=== PATIENT | female | born 1995 | race Caucasian/White ===

== ENCOUNTER 2016-08-27 15:47 | Emergency (ER) | payer MEDICAID, OTHER ==
--- NOTE | 2016-08-27 17:16 | EDDOCDS ---
Physician Documentation [facility] Name: Maya Heller Age: 21 yrs Sex: Female : 1995 Arrival Date: 08/27/2016 Time: 15:47 Bed TR7 Private MD: Regla Rodriguez A Disposition: 08/27/16 16:53 Discharged to Home/Self Care. Impression: Acute sinusitis, unspecified, Cough. - Condition is Stable. - Discharge Instructions: Sinusitis, Adult, Cough, Adult. - Prescriptions for Zithromax Z- Gianluca 250 mg Oral Tablet - take 1 tablet by ORAL route as directed for 5 days Day 1- take two tablets once. Day 2, 3, 4 , 5 take one tablet once daily.; 6 tablet. benzonatate 200 mg Oral Capsule - take 1 capsule by ORAL route 3 times per day As needed do not chew; 30 capsule. Fluticasone 50 mcg/actuation Nasal [place], Suspension - inhale 2 spray by INTRANASAL route once daily; 1 bottle. - Medication Reconciliation, Local Pharmacy Hours form. - Follow up: Emergency Department; When: As needed; Reason: Worsening of conditions. Follow up: Private Physician; When: 4 - 5 days; Reason: Wound/Symptom Recheck, Recheck today's complaints, Continuance of care. - Problem is new. - Symptoms are unchanged. Historical: - Allergies: SULFA (SULFONAMIDES); - Home Meds: 1. Singulair 10 mg Oral tab 1 tab once daily 2. Advair Diskus 250-50 mcg/dose Inhl dsdv 1 puff 2 times per day 3. Clarinex 5 mg Oral tab 1 tab once daily - PMHx: Asthma; - PSHx: Tonsillectomy; - Social history: Smoking status: Patient states was never smoker of tobacco. No barriers to communication noted, The patient speaks fluent Kiswahili, Speaks appropriately for age. - Family history: Not pertinent. - : The pt / caregiver states he / she is not on anticoagulants. Home medication list is obtained from the patient. - Exposure Risk Screening:: None identified. 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 3 in. (160.02 cm); Pain 4/10; 15:49 Body Mass Index 32.77 (83.91 kg, 160.02 cm) elp MDM: 16:41 Financial registration complete. ada 16:43 [facility] Payment Agreement was scanned into [employer] and attached to record. ada Signatures: Chano Cotter RN RN mlb1 Belgica AndradeRN RN [facility] Arabella La PA-C PA-C dt4 Yudi Cesar The chart was reviewed and I authenticate all verbal orders and agree with the evaluation and treatment provided.Attachments: 16:43 [facility] Payment Agreement gjalexi MTDD
--- NOTE | 2016-08-27 17:16 | EDDOCDS ---
Nurse's Notes [facility] Name: Maya Heller Age: 21 yrs Sex: Female : 1995 Arrival Date: 08/27/2016 Time: 15:47 Bed TR7 Private MD: Regla Rodriguez A Diagnosis: Acute sinusitis, unspecified;Cough Presentation: 08/27 15:51 Presenting complaint: Patient states: "I'm super congested, I have an upset stomach, mlb1 I've been super tired and achy". symptoms began Fridays. Risk factors: the patient reports no vaginal bleeding. Adult Sepsis Screening: The patient does not have new or worsening altered mentation. Patient's respiratory rate is less than 22. Systolic blood pressure is greater than 100. Patient has a qSOFA score of 0- Negative Sepsis Screen. Suicide/Homicide risk assessment- the patient denies having any suicidal and/or homicidal ideations and does not present with any other emotional, behavioral or mental health complaints. Status: Patient is not a service worker helper or dependent. Transition of care: patient was not received from another setting of care. 15:51 Acuity: ARIADNE Level 4 mlb1 15:51 Method Of Arrival: Walkin/Carried/Asstd mlb1 Triage Assessment: 15:54 General: Appears in no apparent distress, Behavior is appropriate for age, cooperative. mlb1 General: Reports fatigue for >3 days. Pain: Location: "all over" Pain currently is 4 out of 10 on a pain scale. Pt Declines HIV testing. GI: Reports diarrhea, nausea. 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 Singulair 10 mg Oral tab 1 tab once daily 2. Advair Diskus 250-50 mcg/dose Inhl dsdv 1 puff 2 times per day 3. Clarinex 5 mg Oral tab 1 tab once daily - PMHx: Asthma; - PSHx: Tonsillectomy; - Social history: Smoking status: Patient states was never smoker of tobacco. No barriers to communication noted, The patient speaks fluent Amharic, Speaks appropriately for age. - Family history: Not pertinent. - : The pt / caregiver states he / she is not on anticoagulants. Home medication list is obtained from the patient. - Exposure Risk Screening:: None identified. Screenin:01 Screening information is obtained from the patient. Fall risk: No risks identified. [facility] Assistance ADL's: requires no assistance with activities of daily living. Abuse/DV Screen: The patient / caregiver reports he/she is: not in a situation that causes fear, pain or injury. Nutritional screening: No deficits noted. Advance Directives: There is no active DNR order. home support is adequate. Assessment: 17:01 General: Appears in no apparent distress, comfortable, Behavior is appropriate for age, cjh cooperative. Pain: Denies pain. Respiratory: Airway is patent Respiratory effort is even, unlabored, Respiratory pattern is regular, symmetrical. GI: Abdomen is non- distended assessed by PA assessed by PA. Derm: Skin is pink, warm & dry. Vital Signs: 15:49 BP 134 / 75; Pulse 89; Resp 18; Temp 97.8; Pulse Ox 100% ; Weight 83.91 kg; Height 5 elp ft. 3 in. (160.02 cm); Pain 4/10; 15:49 Body Mass Index 32.77 (83.91 kg, 160.02 cm) elp Vitals: 15:49 Log In Time: August 27, 2016 at 15:47. elp ED Course: 15:48 Patient visited by Lalita Powell PCA. elp 15:48 Patient moved to Waiting elp 15:49 Regla Rodriguez is Private Physician. elp 15:50 Patient visited by Lalita Powell PCA. elp 15:50 Patient moved to Pre RCE elp 15:51 Patient visited by Chano Cotter RN. mlb1 15:53 Triage Initiated mlb1 15:55 Patient visited by Chano Cotter RN. mlb1 16:19 Patient moved to Triage 2 rs6 16:30 [facility] La [facility]. dt4 16:30 Kenny Bess MD is Attending Physician. dt4 16:31 Patient visited by Arabella La PA-C. dt4 16:43 [facility] Payment Agreement was scanned into [employer] and attached to record. gjb 16:58 Patient moved to TR7 ck1 17:01 The patient / caregiver is instructed regarding the plan of care and ED course. [facility] 17:01 No IV's were initiated during this patient's visit. No procedures done that require [facility] assistance. Order Results: There are currently no results for this order. Outcome: 16:53 Discharge ordered by Provider. dt4 17:01 Discharge Assessment: Patient awake, alert and oriented x 3. No cognitive and/or [facility] functional deficits noted. Patient verbalized understanding of disposition instructions. patient administered narcotics - no. The following High Risk Discharge criteria are identified: None. Discharged to home ambulatory. Condition: good Condition: stable Condition: improved. Discharge instructions given to patient, Instructed on discharge instructions, follow up and referral plans. medication usage, Demonstrated understanding of instructions, medications, Pt was receptive of discharge instructions/ teaching. Prescriptions given X 3. No special radiology studies were completed. Property :Personal belongings accompany Pt. 17:15 Patient left the ED. mlb1 Signatures: Chano Cotter RN RN mlb1 Emma RodasRN RN ck1 Belgica AndradeRN RN cj Lalita Powell, SQUARING SHEAR OPERATOR SQUARING SHEAR OPERATOR ivanap Arabella La PA-C PA-C dt4 Shayna Hilliard, SQUARING SHEAR OPERATOR SQUARING SHEAR OPERATOR rs6 Yudi Cesar MTDD
--- NOTE | 2016-08-29 18:16 | EDDOCDS ---
Physician Documentation [facility] Name: Maya Heller Age: 21 yrs Sex: Female : 1995 Arrival Date: 08/27/2016 Time: 15:47 Bed TR7 Private MD: Regla Rodriguez A Disposition: 08/27/16 16:53 Discharged to Home/Self Care. Impression: Acute sinusitis, unspecified, Cough. - Condition is Stable. - Discharge Instructions: Sinusitis, Adult, Cough, Adult. - Prescriptions for Zithromax Z- Gianluca 250 mg Oral Tablet - take 1 tablet by ORAL route as directed for 5 days Day 1- take two tablets once. Day 2, 3, 4 , 5 take one tablet once daily.; 6 tablet. benzonatate 200 mg Oral Capsule - take 1 capsule by ORAL route 3 times per day As needed do not chew; 30 capsule. Fluticasone 50 mcg/actuation Nasal [place], Suspension - inhale 2 spray by INTRANASAL route once daily; 1 bottle. - Medication Reconciliation, Local Pharmacy Hours form. - Follow up: Emergency Department; When: As needed; Reason: Worsening of conditions. Follow up: Private Physician; When: 4 - 5 days; Reason: Wound/Symptom Recheck, Recheck today's complaints, Continuance of care. - Problem is new. - Symptoms are unchanged. Historical: - Allergies: SULFA (SULFONAMIDES); - Home Meds: 1. Singulair 10 mg Oral tab 1 tab once daily 2. Advair Diskus 250-50 mcg/dose Inhl dsdv 1 puff 2 times per day 3. Clarinex 5 mg Oral tab 1 tab once daily - PMHx: Asthma; - PSHx: Tonsillectomy; - Social history: Smoking status: Patient states was never smoker of tobacco. No barriers to communication noted, The patient speaks fluent Welsh, Speaks appropriately for age. - Family history: Not pertinent. - : The pt / caregiver states he / she is not on anticoagulants. Home medication list is obtained from the patient. - Exposure Risk Screening:: None identified. 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 3 in. (160.02 cm); Pain 4/10; 15:49 Body Mass Index 32.77 (83.91 kg, 160.02 cm) elp MDM: 16:41 Financial registration complete. gjb 16:43 [facility] Payment Agreement was scanned into [employer] and attached to record. gjb 08/28 09:43 T-Sheet-- Draft Copy was scanned into [employer] and attached to record. gb Signatures: Che Osullivan, Reg Reg gb Vahe, Chano Brunson RN RN mlb1 Belgica AndradeRN RN cj Arabella La PA-C PA-C dt4 Yudi Cesar The chart was reviewed and I authenticate all verbal orders and agree with the evaluation and treatment provided.Attachments: 08/27 16:43 [facility] Payment Agreement gjb 08/28 09:43 T-Sheet-- Draft Copy gb Chart Complete MTDD
--- NOTE | 2016-08-29 18:16 | EDDOCDS ---
Nurse's Notes [facility] Name: Maya Heller Age: 21 yrs Sex: Female : 1995 Arrival Date: 08/27/2016 Time: 15:47 Bed TR7 Private MD: Regla Rodriguez A Diagnosis: Acute sinusitis, unspecified;Cough Presentation: 08/27 15:51 Presenting complaint: Patient states: "I'm super congested, I have an upset stomach, mlb1 I've been super tired and achy". symptoms began Fridays. Risk factors: the patient reports no vaginal bleeding. Adult Sepsis Screening: The patient does not have new or worsening altered mentation. Patient's respiratory rate is less than 22. Systolic blood pressure is greater than 100. Patient has a qSOFA score of 0- Negative Sepsis Screen. Suicide/Homicide risk assessment- the patient denies having any suicidal and/or homicidal ideations and does not present with any other emotional, behavioral or mental health complaints. Status: Patient is not a director of cardiopulmonary services or dependent. Transition of care: patient was not received from another setting of care. 15:51 Acuity: ARIADNE Level 4 mlb1 15:51 Method Of Arrival: Walkin/Carried/Asstd mlb1 Triage Assessment: 15:54 General: Appears in no apparent distress, Behavior is appropriate for age, cooperative. mlb1 General: Reports fatigue for >3 days. Pain: Location: "all over" Pain currently is 4 out of 10 on a pain scale. Pt Declines HIV testing. GI: Reports diarrhea, nausea. 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 Singulair 10 mg Oral tab 1 tab once daily 2. Advair Diskus 250-50 mcg/dose Inhl dsdv 1 puff 2 times per day 3. Clarinex 5 mg Oral tab 1 tab once daily - PMHx: Asthma; - PSHx: Tonsillectomy; - Social history: Smoking status: Patient states was never smoker of tobacco. No barriers to communication noted, The patient speaks fluent Czech, Speaks appropriately for age. - Family history: Not pertinent. - : The pt / caregiver states he / she is not on anticoagulants. Home medication list is obtained from the patient. - Exposure Risk Screening:: None identified. Screenin:01 Screening information is obtained from the patient. Fall risk: No risks identified. [facility] Assistance ADL's: requires no assistance with activities of daily living. Abuse/DV Screen: The patient / caregiver reports he/she is: not in a situation that causes fear, pain or injury. Nutritional screening: No deficits noted. Advance Directives: There is no active DNR order. home support is adequate. Assessment: 17:01 General: Appears in no apparent distress, comfortable, Behavior is appropriate for age, cjh cooperative. Pain: Denies pain. Respiratory: Airway is patent Respiratory effort is even, unlabored, Respiratory pattern is regular, symmetrical. GI: Abdomen is non- distended assessed by PA assessed by PA. Derm: Skin is pink, warm & dry. Vital Signs: 15:49 BP 134 / 75; Pulse 89; Resp 18; Temp 97.8; Pulse Ox 100% ; Weight 83.91 kg; Height 5 elp ft. 3 in. (160.02 cm); Pain 4/10; 15:49 Body Mass Index 32.77 (83.91 kg, 160.02 cm) elp Vitals: 15:49 Log In Time: August 27, 2016 at 15:47. elp ED Course: 15:48 Patient visited by Lalita Powell PCA. elp 15:48 Patient moved to Waiting elp 15:49 Regla Rodriguez is Private Physician. elp 15:50 Patient visited by Lalita Powell PCA. elp 15:50 Patient moved to Pre RCE elp 15:51 Patient visited by Chano Cotter RN. mlb1 15:53 Triage Initiated mlb1 15:55 Patient visited by Chano Cotter RN. mlb1 16:19 Patient moved to Triage 2 rs6 16:30 [facility] dt4 16:30 Kenny Bess MD is Attending Physician. dt4 16:31 Patient visited by Arabella La PA-C. dt4 16:43 [facility] Payment Agreement was scanned into [employer] and attached to record. gjb 16:58 Patient moved to TR7 ck1 17:01 The patient / caregiver is instructed regarding the plan of care and ED course. [facility] 17:01 No IV's were initiated during this patient's visit. No procedures done that require [facility] assistance. 08/28 09:43 T-Sheet-- Draft Copy was scanned into [employer] and attached to record. Order Results: There are currently no results for this order. Outcome: 08/27 16:53 Discharge ordered by Provider. dt4 17:01 Discharge Assessment: Patient awake, alert and oriented x 3. No cognitive and/or [facility] functional deficits noted. Patient verbalized understanding of disposition instructions. patient administered narcotics - no. The following High Risk Discharge criteria are identified: None. Discharged to home ambulatory. Condition: good Condition: stable Condition: improved. Discharge instructions given to patient, Instructed on discharge instructions, follow up and referral plans. medication usage, Demonstrated understanding of instructions, medications, Pt was receptive of discharge instructions/ teaching. Prescriptions given X 3. No special radiology studies were completed. Property :Personal belongings accompany Pt. 17:15 Patient left the ED. [facility] Signatures: Che [place]ulil[place], Reg Reg Chano Cotter RN RN mlb1 Emma RodasRN RN ck1 Belgica AndradeRN RN [facility] Lalita Powell, HANDMADE TILE ARTIST HANDMADE TILE ARTIST elp Arabella La, NGHIA PAGeoffrey dt4 Shayna Hilliard, HANDMADE TILE ARTIST HANDMADE TILE ARTIST rs6 Yudi Cesar Chart Complete MTDD
--- NOTE | 2016-08-29 18:16 | EDDOCDS ---
Physician Documentation [facility] Name: Maya Heller Age: 21 yrs Sex: Female : 1995 Arrival Date: 08/27/2016 Time: 15:47 Bed TR7 Private MD: Regla Rodriguez A Disposition: 08/27/16 16:53 Discharged to Home/Self Care. Impression: Acute sinusitis, unspecified, Cough. - Condition is Stable. - Discharge Instructions: Sinusitis, Adult, Cough, Adult. - Prescriptions for Zithromax Z- Gianluca 250 mg Oral Tablet - take 1 tablet by ORAL route as directed for 5 days Day 1- take two tablets once. Day 2, 3, 4 , 5 take one tablet once daily.; 6 tablet. benzonatate 200 mg Oral Capsule - take 1 capsule by ORAL route 3 times per day As needed do not chew; 30 capsule. Fluticasone 50 mcg/actuation Nasal [place], Suspension - inhale 2 spray by INTRANASAL route once daily; 1 bottle. - Medication Reconciliation, Local Pharmacy Hours form. - Follow up: Emergency Department; When: As needed; Reason: Worsening of conditions. Follow up: Private Physician; When: 4 - 5 days; Reason: Wound/Symptom Recheck, Recheck today's complaints, Continuance of care. - Problem is new. - Symptoms are unchanged. Historical: - Allergies: SULFA (SULFONAMIDES); - Home Meds: 1. Singulair 10 mg Oral tab 1 tab once daily 2. Advair Diskus 250-50 mcg/dose Inhl dsdv 1 puff 2 times per day 3. Clarinex 5 mg Oral tab 1 tab once daily - PMHx: Asthma; - PSHx: Tonsillectomy; - Social history: Smoking status: Patient states was never smoker of tobacco. No barriers to communication noted, The patient speaks fluent Setswana, Speaks appropriately for age. - Family history: Not pertinent. - : The pt / caregiver states he / she is not on anticoagulants. Home medication list is obtained from the patient. - Exposure Risk Screening:: None identified. 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 3 in. (160.02 cm); Pain 4/10; 15:49 Body Mass Index 32.77 (83.91 kg, 160.02 cm) elp MDM: 16:41 Financial registration complete. gjb 16:43 [facility] Payment Agreement was scanned into [employer] and attached to record. gjb 08/28 09:43 T-Sheet-- Draft Copy was scanned into [employer] and attached to record. gb Signatures: Che Osullivan, Reg Reg gb Vahe, Chano Brunson RN RN mlb1 Belgica AndradeRN RN cj Arabella La PA-C PA-C dt4 Yudi Cesar The chart was reviewed and I authenticate all verbal orders and agree with the evaluation and treatment provided.Attachments: 08/27 16:43 [facility] Payment Agreement gjb 08/28 09:43 T-Sheet-- Draft Copy gb Chart Complete MTDD
== END 2016-08-27 17:15 | disposition home or self-care (01) ==
LOC: M ED 15:47
DX: J01.90 Acute sinusitis, unspecified (principal); R05 Cough; J45.909 Unspecified asthma, uncomplicated; Z88.2 Allergy status to sulfonamides; Z79.899 Other long term (current) drug therapy; Z79.51 Long term (current) use of inhaled steroids

== ENCOUNTER 2017-02-01 05:50 | Inpatient (IN) | payer MEDICAID, OTHER ==
[~2017-02-01] VITALS: Ht 160 cm; Wt 94.7 kg
[2017-02-01] MEDS ORDERED: FLUT1SPR2 (06:25)
[2017-02-01] MEDS ORDERED: CLOBETASOL (06:25)
[2017-02-01] MEDS ORDERED: Birth control (06:25)
[2017-02-01] MEDS ORDERED: MONT10TA2 (06:25)
[2017-02-01] MEDS ORDERED: ADV250INH (06:25)
[2017-02-01] MEDS ORDERED: CETI10TA (06:25)
[2017-02-01] MEDS ORDERED: TYLE325T5 PO (06:26)
[2017-02-01] MEDS ORDERED: ONDANSETRON 4 MG ORAL DISINTEGRATING TAB (S0181) PO ONE (07:30)
[2017-02-01] MEDS ORDERED: ACETAMINOPHEN 325 MG TAB PO ONE (07:30)
[2017-02-01] MEDS ORDERED: NS 1,000 ML IV ONE ×2 (08:30→09:30)
[2017-02-01] MEDS ORDERED: cefTRIAXone SOD 1 GM in D5W MINI-BAG PLUS 50 ML IV ONE ×2 (08:30→12:00)
[2017-02-01] MEDS ORDERED: KETOROLAC 30 MG/ML VIAL (J1885) IV ONE (08:30)
[2017-02-01 09:07] LABS: ALBUMIN 3.8 GM/DL (3.2-5.2); ALKALINE PHOSPHATASE 71 U/L (45-117); ALT/SGPT 23 U/L (12-78); ANION GAP 8 MEQ/L (8-16); AST/SGOT 15 U/L (15-37); BILIRUBIN,TOTAL 0.4 MG/DL (0.2-1.0); BLOOD UREA NITROGEN 10 MG/DL (7-18); CALCIUM LEVEL 8.7 MG/DL (8.5-10.1); CARBON DIOXIDE LEVEL 23 MEQ/L (21-32); CHLORIDE LEVEL 105 MEQ/L (98-107); CREATININE FOR GFR 1.07 MG/DL (0.55-1.02); GLOMERULAR FILTRATION RATE > 60.0 (>60); GLUCOSE, FASTING 129 MG/DL (70-105); POTASSIUM SERUM 3.2 MEQ/L (3.5-5.1); SODIUM LEVEL 136 MEQ/L (136-145); TOTAL PROTEIN 7.6 GM/DL (6.4-8.2)
[2017-02-01] MEDS ORDERED: DOCUSATE SODIUM 100 MG CAP PO ONE (09:15)
[2017-02-01 09:27] LABS: BASO # 0.1 K/mm3 (0.0-0.2); BASO % 0.3 % (0.0-1.0); EOS # 0.1 K/mm3 (0.0-0.50); EOS % 0.6 % (0.0-3.0); LARGE UNSTAINED CELL # 0.1 K/mm3 (0.0-0.4); LARGE UNSTAINED CELL % 0.5 % (0.0-4.0); LYMPH % 5.4 % (24.0-44.0); MEAN CORPUSCULAR HEMOGLOBIN 32.4 pg (27.0-33.0); MEAN CORPUSCULAR HGB CONC 34.6 g/dl (32.0-36.5); MEAN CORPUSCULAR VOLUME 93.6 fl (80.0-96.0); MONO # 0.7 K/mm3 (0.0-0.8); MONO % 3.9 % (0.0-5.0); NEUTROPHILS % 89.2 % (36.0-66.0); PLATELET COUNT, AUTOMATED 262 k/mm3 (150-450); RED CELL DISTRIBUTION WIDTH 11.9 % (11.5-14.5); WHITE BLOOD COUNT 17.9 K/mm3 (4.0-10.0)
[2017-02-01] MEDS ORDERED: CETI10TA PO (10:11)
[2017-02-01] MEDS ORDERED: VITA500T88 PO (10:11)
[2017-02-01] MEDS ORDERED: VITMTA PO (10:11)
[2017-02-01] MEDS ORDERED: SING10TA32 PO (10:11)
[2017-02-01] MEDS ORDERED: VITA100066 PO (10:11)
[2017-02-01] MEDS ORDERED: ORTH0.35 PO (10:11)
[2017-02-01] MEDS ORDERED: VITA400C7 PO (10:11)
[2017-02-01] MEDS ORDERED: FLON1SPR (10:11)
[2017-02-01] MEDS ORDERED: cefTRIAXone SOD 2 GM in D5W MINI-BAG PLUS 50 ML IV ONE (11:30)
--- NOTE | 2017-02-01 11:43 | REP ---
BILATERAL RENAL ULTRASOUND: 02/01/2017 CLINICAL HISTORY: Urosepsis. No flank pain. Evaluate for stone or other. COMPARISON: Bilateral upper quadrant ultrasound 11/02/2013. FINDINGS: Sonographic evaluation shows the right kidney 13 x 5.3 x 4.3 cm. The left kidney is 13.3 x 4.9 x 5.1 cm. Cortical thickness and echogenicity are normal for both kidneys. There is mild pelviectasis on the right and a partial duplication of the collecting system is noted. No definite hydroureter on that right side. The left kidney shows normal cortical thickness and echogenicity and no hydronephrosis or hydroureter. It also shows a duplicated collecting system. Bladder was well distended at 13 x 9.5 x 8.7 cm. No stone, mass or wall thickening. IMPRESSION: 1. Renal cortical thickness and echogenicity normal with minimal pelviectasis and hydronephrosis on the right, non on the left. No stone, solid or cystic mass visible. 2. Partial duplication collecting systems bilaterally. 3. Bladder grossly unremarkable, well distended for this examination. Signed by Abelino Lucero MD 02/01/2017 07:34 P
[2017-02-01] MEDS ORDERED: PERCOCET 5MG/325MG TAB PO PRN (11:45)
[2017-02-01] MEDS ORDERED: ONDANSETRON 4MG/2ML VIAL (J2405) IV PRN (11:45)
[2017-02-01] MEDS ORDERED: POTASSIUM CHLORIDE 10 MEQ SR TABLET PO ONE (12:00)
[2017-02-01 12:50] VITALS: BP 119/67
--- NOTE | 2017-02-01 13:10 | HPE ---
DATE OF ADMISSION: 02/01/2017 PRIMARY CARE PROVIDER: Regla Rodriguez CHIEF COMPLAINT: Chills, diffuse body aches, fever, pain, urinary frequency. HISTORY OF PRESENT ILLNESS: This is a 22-year-old female with underlying medical history of seasonal allergies, asthma, urinary tract infection (UTI) three episodes within the last year, presented with fevers, with chills, myalgia, and also suprapubic pain with increasing frequencies. The patient is currently having her period. Denies history of sexually transmitted diseases (STDs). Denies any dysuria. Denies any sick contact. Denies any nasal congestion. Reported mild dry cough. Denies any shortness of breath, chest pain, pressure, or discomfort. In the emergency department (ED), the patient was found to be febrile. Given intravenous (IV) fluids and Rocephin. Found to have leukocytosis of 17. Requested for admission for observation. The patient also reported nausea, no vomiting, and dry heaving. ALLERGIES: To SULFA ANTIBIOTICS. PAST MEDICAL HISTORY: 1. Asthma. 2. Seasonal allergies. 3. Three UTIs in the past. PAST SURGICAL HISTORY: 1. Tonsillectomy. 2. Adenoidectomy. SOCIAL HISTORY: Occasional alcohol once a week. No smoking. No illicit drug use. FAMILY HISTORY: Noncontributory. Denies family history of cancer. REVIEW OF SYSTEMS: Nausea. Dry heaving. No vomiting. Chills. Myalgia. Urinary frequencies. All other review of systems are negative. HOME MEDICATIONS: - acetaminophen 650 mg by mouth as needed - vitamin C 500 mg by mouth daily - Zyrtec 10 mg by mouth daily - vitamin D 1000 units by mouth daily - Flonase daily - Singulair 10 mg by mouth daily - multivitamin one tablet by mouth daily - vitamin E 400 units by mouth daily PHYSICAL EXAMINATION: Maximum temperature (Tmax) 100.7, pulse 104, respiration 18, blood pressure 133/67, pulse oximetry 96% on room air. GENERAL: The patient alert and oriented times three. In no acute distress. HEENT: Normocephalic, atraumatic. PULMONARY: Bilaterally clear to auscultation. CARDIAC: Not tachycardic. Regular. ABDOMEN: Soft, nontender, positive bowel sounds. Mild suprapubic discomfort. No costovertebral angle (CVA) tenderness. No lower extremity edema. LABORATORY: WBC 17.9, hemoglobin and hematocrit 14/40.8, platelets 262. Chemistry: Sodium 136, potassium 3.2, chloride 105, bicarbonate 32, BUN 10, creatinine 1.07, lactic acid 2.3. Renal ultrasound negative. ASSESSMENT AND PLAN: This is a 22-year-old female patient with underlying medical history of seasonal allergies, asthma, admitted for sepsis secondary to UTI. PROBLEMS: 1. Sepsis secondary to urinary tract infection. The patient tachycardic with fever, with leukocytosis. Intravenous (IV) fluids. Recheck lactic acid. Antibiotic Rocephin. Followup cultures. 2. Hypokalemia. Supplement potassium. Followup with magnesium. Continue to monitor. 3. Seasonal allergies. Continue home medications. 4. Asthma. The patient not having any wheeze on physical examination. 5. Deep venous thrombosis (DVT) prophylaxis. Lovenox subcutaneously. DISPOSITION PLANNING: Pending clinical improvement. The patient admitted for observation.
[2017-02-01] MEDS: VITAMIN E 400 INTERNATIONAL UNITS CAP PO SCH (14:03)
[2017-02-01] MEDS: KCL 20MEQ in NS 1000ML 1,000 ML IV SCH ×2 (14:03→20:06)
[2017-02-01] MEDS: CETIRIZINE (ZyrTEC) 10 MG TAB PO SCH (14:03)
[2017-02-01] MEDS: FLUTICASONE PROP 0.05% NASAL SPRAY 16 GM (FLONASE) SCH (14:03)
[2017-02-01] MEDS: VITAMIN D 1,000 INTERNATIONAL UNITS TABLET PO SCH (14:03)
[2017-02-01] MEDS: MULTIVITAMINS/MINERALS THERAP 1 TAB PO SCH (14:11)
[2017-02-01] MEDS: MONTELUKAST 10 MG TAB PO SCH (14:11)
[2017-02-01 16:00] VITALS: BP 125/74
[2017-02-01] MEDS: ACETAMINOPHEN TAB 650MG DOSE (2X325MG) PO PRN ×2 (16:00→20:06)
[2017-02-01 20:00] VITALS: BP 138/88
[2017-02-01] MEDS: SENOKOT S TAB PO SCH (20:06)
[2017-02-02] VITALS: BP 130/76
[2017-02-02] MEDS: KCL 20MEQ in NS 1000ML 1,000 ML IV SCH ×3 (04:10→19:57)
[2017-02-02] MEDS: ACETAMINOPHEN TAB 650MG DOSE (2X325MG) PO PRN (04:23)
[2017-02-02] MEDS: IBUPROFEN 600 MG TAB PO PRN ×2 (04:55→16:18)
[2017-02-02 07:05] LABS: MEAN CORPUSCULAR HEMOGLOBIN 31.5 pg (27.0-33.0); MEAN CORPUSCULAR HGB CONC 33.2 g/dl (32.0-36.5); RED CELL DISTRIBUTION WIDTH 12.4 % (11.5-14.5); WHITE BLOOD COUNT 15.9 K/mm3 (4.0-10.0)
[2017-02-02 07:17] LABS: ANION GAP 6 MEQ/L (8-16); BLOOD UREA NITROGEN 5 MG/DL (7-18); CALCIUM LEVEL 8.4 MG/DL (8.5-10.1); CARBON DIOXIDE LEVEL 23 MEQ/L (21-32); CHLORIDE LEVEL 111 MEQ/L (98-107); CREATININE FOR GFR 0.82 MG/DL (0.55-1.02); GLOMERULAR FILTRATION RATE > 60.0 (>60); GLUCOSE, FASTING 103 MG/DL (70-105); MAGNESIUM LEVEL 1.9 MG/DL (1.8-2.4); POTASSIUM SERUM 3.9 MEQ/L (3.5-5.1); SODIUM LEVEL 140 MEQ/L (136-145)
[2017-02-02 08:00] VITALS: BP 113/55
[2017-02-02] MEDS: cefTRIAXone SOD 2 GM in D5W MINI-BAG PLUS 50 ML IV SCH (08:25)
[2017-02-02] MEDS: MULTIVITAMINS/MINERALS THERAP 1 TAB PO SCH (08:25)
[2017-02-02] MEDS: CETIRIZINE (ZyrTEC) 10 MG TAB PO SCH (08:25)
[2017-02-02] MEDS: VITAMIN E 400 INTERNATIONAL UNITS CAP PO SCH (08:25)
[2017-02-02] MEDS: VITAMIN D 1,000 INTERNATIONAL UNITS TABLET PO SCH (08:25)
[2017-02-02] MEDS: MONTELUKAST 10 MG TAB PO SCH (08:25)
[2017-02-02] MEDS: SENOKOT S TAB PO SCH ×2 (08:26→19:57)
[2017-02-02] MEDS: ENOXAPARIN 40 MG/0.4 ML SYRINGE (J1650) SC SCH (08:27)
[2017-02-02] MEDS: FLUTICASONE PROP 0.05% NASAL SPRAY 16 GM (FLONASE) SCH (08:37)
[2017-02-02 16:00] VITALS: BP 125/85
--- NOTE | 2017-02-02 18:24 | IPN ---
DATE: 02/02/2017 The patient is seen and examined, was febrile overnight. Maximum temperature (t-max) of 104. Reported headache overnight but has currently resolved. Denies any chest pain, pressure or discomfort. Denies any abdominal pain or shortness of breath. Currently, respirations feeling much better than yesterday. The patient was admitted yesterday. VITAL SIGNS: Current temperature 99.1, pulse 93, respirations 18, blood pressure 125/85, pulse oximetry 100% on room air. LABORATORY DATA: WBC 15.9, hemoglobin and hematocrit 13.6/41, platelets 231. Chemistry: Sodium 140, potassium 3.9, chloride 111, bicarbonate 23, BUN 5, creatinine 0.8, lactic acid 1.3. PHYSICAL EXAMINATION: GENERAL: The patient is obese, alert and oriented times three. No acute distress. HEENT: Normocephalic, atraumatic. PULMONARY: Clear to auscultation. CARDIAC: Regular rate and rhythm. Normal S1, S2. ABDOMEN: Soft, nontender, nondistended. Suprapubic pain has resolved. No costovertebral angle tenderness. EXTREMITIES: No edema in bilateral lower extremities. NEUROLOGIC: No focal deficits. ASSESSMENT AND PLAN: This is a 22-year-old female patient with underlying medical history of seasonal allergies, asthma, admitted for sepsis secondary to urinary tract infection (UTI). 1. Sepsis secondary to urinary tract infection (UTI). The patient was tachycardic with fevers on admission with leukocytosis. IV fluids initially given. Lactic acid improved. Continue antibiotic with Rocephin. Followup culture. 2. Hypokalemia. Supplement electrolytes. Followup potassium and magnesium. Continue to monitor. 3. Seasonal allergies. Continue home medications. 4. Asthma. The patient is not having any wheeze. Continue home medications. Respiratory panel negative. 5. Deep vein thrombosis (DVT) prophylaxis. Lovenox subcutaneously. DISPOSITION PLANNING: Patient had an elevated fever overnight. We will continue to monitor for the next 24 hours for clinical improvement. Pending cultures.
[2017-02-02 20:00] VITALS: BP 128/85
[2017-02-03 04:00] VITALS: BP 116/80
[2017-02-03] MEDS: KCL 20MEQ in NS 1000ML 1,000 ML IV SCH ×3 (06:41→21:32)
[2017-02-03 06:56] LABS: MEAN CORPUSCULAR HEMOGLOBIN 31.9 pg (27.0-33.0); MEAN CORPUSCULAR HGB CONC 32.8 g/dl (32.0-36.5); MEAN CORPUSCULAR VOLUME 97.3 fl (80.0-96.0); RED CELL DISTRIBUTION WIDTH 12.1 % (11.5-14.5); WHITE BLOOD COUNT 12.3 K/mm3 (4.0-10.0)
[2017-02-03 07:19] LABS: ANION GAP 9 MEQ/L (8-16); BLOOD UREA NITROGEN 4 MG/DL (7-18); CALCIUM LEVEL 8.9 MG/DL (8.5-10.1); CARBON DIOXIDE LEVEL 23 MEQ/L (21-32); CHLORIDE LEVEL 111 MEQ/L (98-107); CREATININE FOR GFR 0.73 MG/DL (0.55-1.02); GLOMERULAR FILTRATION RATE > 60.0 (>60); GLUCOSE, FASTING 77 MG/DL (70-105); MAGNESIUM LEVEL 2.1 MG/DL (1.8-2.4); POTASSIUM SERUM 4.5 MEQ/L (3.5-5.1); SODIUM LEVEL 143 MEQ/L (136-145)
[2017-02-03 08:00] VITALS: BP 139/85
[2017-02-03] MEDS: SENOKOT S TAB PO SCH ×2 (08:35→19:53)
[2017-02-03] MEDS: VITAMIN E 400 INTERNATIONAL UNITS CAP PO SCH (08:35)
[2017-02-03] MEDS: MONTELUKAST 10 MG TAB PO SCH (08:36)
[2017-02-03] MEDS: VITAMIN D 1,000 INTERNATIONAL UNITS TABLET PO SCH (08:36)
[2017-02-03] MEDS: MULTIVITAMINS/MINERALS THERAP 1 TAB PO SCH (08:36)
[2017-02-03] MEDS: CETIRIZINE (ZyrTEC) 10 MG TAB PO SCH (08:36)
[2017-02-03] MEDS: ENOXAPARIN 40 MG/0.4 ML SYRINGE (J1650) SC SCH (08:37)
[2017-02-03] MEDS: FLUTICASONE PROP 0.05% NASAL SPRAY 16 GM (FLONASE) SCH (08:37)
[2017-02-03] MEDS: cefTRIAXone SOD 2 GM in D5W MINI-BAG PLUS 50 ML IV SCH (08:37)
[2017-02-03] MEDS: IBUPROFEN 600 MG TAB PO PRN (08:46)
[2017-02-03] MEDS ORDERED: ADV250INH INH (09:50)
--- NOTE | 2017-02-03 10:10 | REP ---
Clinical: Fever . Comparison: None . Findings: The mediastinum and cardiac silhouette are stable and within normal limits for portable technique. The lung elise are clear without acute consolidation, effusion, or pneumothorax. Skeletal structures are intact. Impression: Normal portable chest x-ray Signed by Stanley Azar MD 02/03/2017 10:01 A
[2017-02-03 10:25] LABS: HCG, SERUM QUANTITATIVE < 1.0 MIU/ML
[2017-02-03] MEDS: PIPERACILLIN/TAZOBACTAM SOD 3.375 GM in D5W MINI-BAG PLUS 50 ML IV SCH ×3 (11:10→21:32)
[2017-02-03] MEDS: ADVAIR DISKUS 250/50 INH PWD INH SCH ×2 (11:20→20:28)
[2017-02-03 16:00] VITALS: BP 129/74
--- NOTE | 2017-02-03 16:18 | IPNPDOC ---
Text Note Date of Service The patient was seen on 02/03/17. NOTE Subjective: Patient states she's feeling well. No sore throat/cough. Had increased urinary frequency prior to presentation, and at the time that her symptoms initially began. No diarrhea. No abdominal pain. Objective: Vitals: (see below) General: No acute distress, laying comfortably in bed. HEENT: Moist mucous membranes. Neck: No JVD or lymphadenopathy Cardiac: RRR, No murmurs Pulm: Clear to auscultation b/l. No wheezing, rhonchi Abd: NT/ND + BS. Obese. No CVA tenderness Ext: No edema or cyanosis Labs (see below) Images: Renal ultrasound 02/02/17 IMPRESSION: 1. Renal cortical thickness and echogenicity normal with minimal pelviectasis and hydronephrosis on the right, non on the left. No stone, solid or cystic mass visible. 2. Partial duplication collecting systems bilaterally. 3. Bladder grossly unremarkable, well distended for this examination. Chest x-ray 02/03/17 Normal portable chest x-ray Assessment/Plan 1. Sepsis likely secondary to urinary source. Patient did have increased urinary frequency prior to presentation. History of multiple UTIs in the past. Leukocytosis improving. Patient still febrile this a.m. Rocephin has been changed to Zosyn. Repeat blood culture repeated. UA notable. ? Strep group C on throat culture- no sore throat or cough. No pharyngeal erythema on exam. Lactic acid improving. 2. Hypokalemia- placed 3. Seasonal allergies- continue home meds 4. History of asthma- continue home inhalers. DVT prophy: Lovenox SQ VS,Fishbone, I+O VS, Fishbone, I+O Laboratory Tests 02/03/17 06:39 Red Blood Count 4.89, Mean Corpuscular Volume 97.3 H, Mean Corpuscular Hemoglobin 31.9, Mean Corpuscular Hemoglobin Concent 32.8, Red Cell Distribution Width 12.1, Calcium Level 8.9 Vital Signs Date Time Temp Pulse Resp B/P (MAP) Pulse Ox O2 Delivery O2 Flow Rate FiO2 02/03/17 11:00 98.9 02/03/17 08:00 99 20 139/85 (103) 99 Room Air I&O- Last 24 Hours up to 6 AM 02/03/17 05:59 Intake Total 4980 ml Output Total 4900 ml Balance 80 ml FEROZ NAVA MD Feb 03, 2017 16:18
[2017-02-03 20:00] VITALS: BP 121/77
[2017-02-04] VITALS: BP 125/69
[2017-02-04] MEDS: PIPERACILLIN/TAZOBACTAM SOD 3.375 GM in D5W MINI-BAG PLUS 50 ML IV SCH ×2 (04:01→09:48)
[2017-02-04] MEDS: KCL 20MEQ in NS 1000ML 1,000 ML IV SCH (04:02)
[2017-02-04] MEDS: ADVAIR DISKUS 250/50 INH PWD INH SCH (07:37)
[2017-02-04 08:00] VITALS: BP 138/82
[2017-02-04] MEDS: SENOKOT S TAB PO SCH (08:30)
[2017-02-04] MEDS: MULTIVITAMINS/MINERALS THERAP 1 TAB PO SCH (08:31)
[2017-02-04] MEDS: VITAMIN D 1,000 INTERNATIONAL UNITS TABLET PO SCH (08:31)
[2017-02-04] MEDS: MONTELUKAST 10 MG TAB PO SCH (08:31)
[2017-02-04] MEDS: ENOXAPARIN 40 MG/0.4 ML SYRINGE (J1650) SC SCH (08:32)
[2017-02-04] MEDS: CETIRIZINE (ZyrTEC) 10 MG TAB PO SCH (08:32)
[2017-02-04] MEDS: VITAMIN E 400 INTERNATIONAL UNITS CAP PO SCH (08:32)
[2017-02-04 08:33] LABS: ANION GAP 8 MEQ/L (8-16); BLOOD UREA NITROGEN 4 MG/DL (7-18); CALCIUM LEVEL 9.2 MG/DL (8.5-10.1); CARBON DIOXIDE LEVEL 21 MEQ/L (21-32); CHLORIDE LEVEL 111 MEQ/L (98-107); CREATININE FOR GFR 0.81 MG/DL (0.55-1.02); GLOMERULAR FILTRATION RATE > 60.0 (>60); GLUCOSE, FASTING 92 MG/DL (70-105); MAGNESIUM LEVEL 2.1 MG/DL (1.8-2.4); POTASSIUM SERUM 4.6 MEQ/L (3.5-5.1); SODIUM LEVEL 140 MEQ/L (136-145)
[2017-02-04] MEDS: FLUTICASONE PROP 0.05% NASAL SPRAY 16 GM (FLONASE) SCH (09:00)
[2017-02-04 09:02] LABS: MEAN CORPUSCULAR HEMOGLOBIN 32.4 pg (27.0-33.0); MEAN CORPUSCULAR HGB CONC 34.3 g/dl (32.0-36.5); MEAN CORPUSCULAR VOLUME 94.7 fl (80.0-96.0); WHITE BLOOD COUNT 11.7 K/mm3 (4.0-10.0)
[2017-02-04] MEDS ORDERED: LEVA1TAB2 PO (11:44)
--- NOTE | 2017-02-04 14:22 | DS.PDOC ---
Discharge Summary General Date of Admission Feb 01, 2017 at 09:05 Date of Discharge 02/04/17 Attending Physician: FEROZ NAVA MD Discharge Summary PROCEDURES PERFORMED DURING STAY: None. ADMITTING/DISCHARGE DIAGNOSES: 1. Sepsis 2. Positive strep group C from throat culture 3. Positive urinalysis 4. History of frequent UTIs COMPLICATIONS/CHIEF COMPLAINT: Sepsis Due To Uti. HISTORY OF PRESENT ILLNESS/HOSPITAL COURSE: . This is a 22-year-old female with no significant past medical history presents complaining of myalgias, generalized weakness, and decreased by mouth intake. Patient presents febrile, with a positive urinalysis, as well as symptoms of increased urinary frequency and a history of frequent UTIs. Patient was initially placed on Rocephin her continue spike fevers. Patient was changed to Zosyn and the fevers have subsided. Blood cultures have been negative 4. Patient tolerated therapy well and feels significantly improved. The patient had strep group C in the sputum, patient had no symptoms of sore throat/cough/posterior pharyngeal erythema. Patient be discharged with Levaquin and will needs to follow-up with her primary care physician in 1 week. Patient will need to return to the ED if fevers recur or symptoms worsen. DISCHARGE MEDICATIONS: Please see below. ALLERGIES: Please see below. PHYSICAL EXAMINATION ON DISCHARGE: VITAL SIGNS: Please see below. General: No acute distress, laying comfortably in bed. HEENT: Moist mucous membranes. Neck: No JVD or lymphadenopathy Cardiac: RRR, No murmurs Pulm: Clear to auscultation b/l. No wheezing, rhonchi Abd: NT/ND + BS. Obese. No CVA tenderness Ext: No edema or cyanosis LABORATORY DATA: Please see below. IMAGING: CXR 02/03/17 Impression: Normal portable chest x-ray Renal 02/01/17 IMPRESSION: 1. Renal cortical thickness and echogenicity normal with minimal pelviectasis and hydronephrosis on the right, non on the left. No stone, solid or cystic mass visible. 2. Partial duplication collecting systems bilaterally. 3. Bladder grossly unremarkable, well distended for this examination. PROGNOSIS: Good ACTIVITY: As tolerated. DIET: As tolerated DISCHARGE PLAN/DISPOSITION: D/c home DISCHARGE INSTRUCTIONS: 1. F/u with PCP in 1 week. DISCHARGE CONDITION: Stable. TIME SPENT ON DISCHARGE: Greater than 30 minutes. Vital Signs/I&Os Vital Signs Date Time Temp Pulse Resp B/P (MAP) Pulse Ox O2 Delivery O2 Flow Rate FiO2 02/04/17 08:00 99.1 103 18 138/82 (100) 99 Room Air I&O- Last 24 Hours up to 6 AM 02/04/17 06:00 Intake Total 3030 ml Output Total 2150 ml Balance 880 ml Laboratory Data Labs 24H Laboratory Tests 2 02/04/17 07:38: Anion Gap 8, Glomerular Filtration Rate > 60.0, Blood Urea Nitrogen 4L, Creatinine 0.81, Sodium Level 140, Potassium Level 4.6, Chloride Level 111H, Carbon Dioxide Level 21, Calcium Level 9.2, Magnesium Level 2.1, C-Reactive Protein, Quantitative 5.44H CBC/BMP Laboratory Tests 02/04/17 07:38 Red Blood Count 4.59, Mean Corpuscular Volume 94.7, Mean Corpuscular Hemoglobin 32.4, Mean Corpuscular Hemoglobin Concent 34.3, Red Cell Distribution Width 12.0 , Calcium Level 9.2 Microbiology Microbiology 02/03/17 Blood Culture - Preliminary, Resulted No growth after 24 hours . All specim... 02/03/17 Blood Culture - Preliminary, Resulted No growth after 24 hours . All specim... 02/01/17 Blood Culture - Preliminary, Resulted No Growth after 72 hours. All specime... 02/01/17 Blood Culture - Preliminary, Resulted No Growth after 72 hours. All specime... 02/01/17 Respiratory Virus Panel (PCR) ([facility]) - Final, Complete 02/01/17 Group A Streptococcus Screen ([facility]) - Final, Complete Streptococcus Group C 02/01/17 Urine Culture - Final, Complete Discharge Medications Scheduled (Flonase Allergy Relief) 50 Mcg/Act Spr, 2 SPRAYS NA DAILY, (Reported) (Ortho Micronor) 0.35 Mg Tab, 0.35 MG PO DAILY, (Reported) Ascorbic Acid (Vitamin C) 500 Mg Tab, 500 MG PO DAILY, (Reported) Cetirizine HCl (Cetirizine HCl) 10 Mg Tab, 10 MG PO DAILY, (Reported) Cholecalciferol (Vitamin D) 1,000 Unit Tab, 1,000 UNIT PO DAILY, (Reported) Levofloxacin Hemihydrate (Levaquin) 500 Mg Tab, 500 MG PO DAILY Montelukast Sodium (Singulair) 10 Mg Tab, 10 MG PO DAILY, (Reported) Multivitamins *[facility] STOCKED* (Thera M Plus *[facility] STOCKED*) 1 Tab Tab, 1 TAB PO DAILY, (Reported) Salmeterol/Fluticasone (Advair Diskus 250-50 Mcg/Dose) 14 Puff/Inhaler Aerp, 1 PUFF INH BID, (Reported) Vitamin E (Vitamin E) 400 Unit Cap, 400 UNIT PO DAILY, (Reported) Scheduled PRN Acetaminophen (Tylenol) 325 Mg Tab, 650 MG PO for PAIN OR FEVER, (Reported) Allergies Coded Allergies: Sulfa Antibiotics (Verified Allergy, Intermediate, HIVES, 02/01/17) FEROZ NAVA MD Feb 04, 2017 14:22
== END 2017-02-04 14:40 | disposition home or self-care (01) | DRG 720 ==
LOC: M ED 06:42 → UNDOADMIN 07:46 → M ED INP 07:46 → INTOOBSV 11:34 → M ED INP 11:34 → M PED 12:45 → OBSVTOIN 02-03 09:05
PROVIDERS: ADMIT Hospitalist; ATTEND Hospitalist
DX: A41.9 Sepsis, unspecified organism (principal); N39.0 Urinary tract infection, site not specified; Z87.440 Personal history of urinary (tract) infections; Z88.2 Allergy status to sulfonamides; Z79.899 Other long term (current) drug therapy; J30.2 Other seasonal allergic rhinitis; E87.6 Hypokalemia; B95.4 Other streptococcus as the cause of diseases classified elsewhere

== ENCOUNTER → 2017-06-04 | Outpatient (REF) | payer OTHER ==
[~2017-06-04] MED LIST: ADV250INH; ADV250INH INH; Birth control; CETI10TA; CETI10TA PO; CLOBETASOL; FLON1SPR; FLUT1SPR2; LEVA1TAB2 PO; MONT10TA2; ORTH0.35 PO; SING10TA32 PO; TYLE325T5 PO; VITA100066 PO; VITA400C7 PO; VITA500T88 PO; VITMTA PO
== END ==
LOC: M LAB REF 20:02
PROVIDERS: ATTEND Physical Therapist
DX: R30.0 Dysuria (principal)

== ENCOUNTER → 2017-06-17 | Outpatient (REF) | payer OTHER | LOC: M LAB REF 17:09 | PROVIDERS: ATTEND Advanced Practice Midwife | DX: Z12.4 Encounter for screening for malignant neoplasm of cervix (principal); R87.610 Atypical squamous cells of undetermined significance on cytologic smear of cervix (ASC-US) ==

== ENCOUNTER → 2017-09-24 | Outpatient (CLI) | payer OTHER ==
[2017-09-24 17:08] LABS: ALBUMIN/GLOBULIN RATIO 1.05 (1.00-1.93); ALKALINE PHOSPHATASE 57 U/L (45-117); ALT/SGPT 31 U/L (12-78); ANION GAP 8 MEQ/L (8-16); AST/SGOT 20 U/L (7-37); BILIRUBIN,TOTAL 0.4 MG/DL (0.2-1.0); BLOOD UREA NITROGEN 9 MG/DL (7-18); CALCIUM LEVEL 9.1 MG/DL (8.5-10.1); CARBON DIOXIDE LEVEL 24 MEQ/L (21-32); CHLORIDE LEVEL 106 MEQ/L (98-107); COMPLEMENT C3 148 MG/DL (90-180); COMPLEMENT C4 26.9 MG/DL (10-40); CREATININE FOR GFR 0.86 MG/DL (0.55-1.30); FREE THYROXINE INDEX 3.5 % (1.3-4.8); GLOMERULAR FILTRATION RATE > 60.0 (>60); GLUCOSE, FASTING 84 MG/DL (70-100); IMMUNOGLOBULIN G 1190 MG/DL (681-1648); IMMUNOGLOBULIN M 92.9 MG/DL (40-230); POTASSIUM SERUM 4.3 MEQ/L (3.5-5.1); RHEUMATOID FACTOR QUANT < 10.0 IU/ML (0-15.0); SODIUM LEVEL 138 MEQ/L (136-145); T UPTAKE 26 % (30-39); THYROXINE (T4) 13.3 UG/DL (4.5-12.0); TOTAL PROTEIN 7.8 GM/DL (6.4-8.2)
[2017-09-24 17:21] LABS: IMMUNOGLOBULIN E 16.3 IU/ML (<100)
[2017-09-24 17:33] LABS: APPEARANCE, URINE CLOUDY (CLEAR); BACTERIA, URINE AUTO 1+ (NEGATIVE); BILIRUBIN, URINE AUTO NEGATIVE (NEGATIVE); BLOOD, URINE BLOOD 2+ (NEGATIVE); COLOR, URINE YELLOW (YELLOW); GLUCOSE, URINE (UA) AUTO NEGATIVE (NEGATIVE); KETONE, URINE AUTO NEGATIVE (NEGATIVE); LEUKOCYTE ESTERASE, URINE AUTO NEGATIVE (NEGATIVE); NITRITE, URINE AUTO NEGATIVE (NEGATIVE); PROTEIN, URINE AUTO NEGATIVE (NEGATIVE); RBC, URINE AUTO 1 /HPF (0-3); SPECIFIC GRAVITY URINE AUTO 1.005 (1.002-1.035); SQUAMOUS EPITHELIAL CELL UR AU 13 /HPF (0-6); UROBILINOGEN, URINE AUTO 0.2 mg/dL (0.0-2.0); WBC, URINE AUTO 2 /HPF (0-3)
[2017-09-24 18:07] LABS: BASO % 0.4 % (0.0-1.0); EOS # 0.1 10^3/uL (0.0-0.50); EOS % 1.3 % (0.0-3.0); HEMATOCRIT 43.1 % (36.0-47.0); HEMOGLOBIN 13.9 g/dl (12.0-16.0); IMMATURE GRANULOCYTE % 0.3 % (0-3.0); LYMPH # 1.9 10^3/uL (1.5-6.5); MEAN CORPUSCULAR HGB CONC 32.3 g/dl (32.0-36.5); MEAN CORPUSCULAR VOLUME 93.1 fl (80.0-96.0); MONO # 0.6 10^3/uL (0.0-0.8); MONO % 7.9 % (0.0-5.0); NEUTROPHILS # 4.6 10^3/uL (1.8-7.7); NEUTROPHILS % 64.1 % (36.0-66.0); PLATELET COUNT, AUTOMATED 301 10^3/uL (150-450); RED BLOOD COUNT 4.63 10^6/uL (4.00-5.40); RED CELL DISTRIBUTION WIDTH 11.9 % (11.5-14.5); WHITE BLOOD COUNT 7.2 10^3/uL (4.0-10.0)
[2017-09-24 19:05] LABS: ERYTHROCYTE SEDIMENTATION RATE 11 mm/hr (0-20)
[2017-09-25 09:27] LABS: THYROGLOBULIN ANTIBODY < 15.0 U/ML (<60.0); THYROID PEROXIDASE ANTIBODY < 28.0 U/ML (<60.0)
[2017-09-25 10:38] LABS: CRYOGLOBULINS NEGATIVE (NEGATIVE)
[2017-09-25 10:46] LABS: HEPATITIS B CORE ANTIBODY IGM NEGATIVE (NEGATIVE)
[2017-09-25 10:47] LABS: HEPATITIS A ANTIBODY IGM NEGATIVE (NEGATIVE)
[2017-09-25 10:57] LABS: HEPATITIS B SURFACE ANTIGEN NEGATIVE (NEGATIVE)
== END ==
LOC: M WUC 12:31
DX: L50.8 Other urticaria (principal); H10.45 Other chronic allergic conjunctivitis; J32.0 Chronic maxillary sinusitis
CPT/HCPCS: 82595

== ENCOUNTER → 2017-09-28 | Outpatient (REF) | payer OTHER ==
[2017-09-28 17:43] LABS: APPEARANCE, URINE HAZY (CLEAR); BACTERIA, URINE AUTO NEGATIVE (NEGATIVE); BILIRUBIN, URINE AUTO NEGATIVE (NEGATIVE); BLOOD, URINE BLOOD NEGATIVE (NEGATIVE); COLOR, URINE STRAW (YELLOW); GLUCOSE, URINE (UA) AUTO NEGATIVE (NEGATIVE); KETONE, URINE AUTO NEGATIVE (NEGATIVE); LEUKOCYTE ESTERASE, URINE AUTO NEGATIVE (NEGATIVE); NITRITE, URINE AUTO NEGATIVE (NEGATIVE); PROTEIN, URINE AUTO NEGATIVE (NEGATIVE); RBC, URINE AUTO 1 /HPF (0-3); SPECIFIC GRAVITY URINE AUTO 1.012 (1.002-1.035); SQUAMOUS EPITHELIAL CELL UR AU 5 /HPF (0-6); UROBILINOGEN, URINE AUTO 0.2 mg/dL (0.0-2.0); WBC, URINE AUTO 1 /HPF (0-3)
== END ==
LOC: M LAB REF 16:21
DX: N39.0 Urinary tract infection, site not specified (principal)

== ENCOUNTER → 2017-11-06 | Outpatient (REF) | payer OTHER ==
[2017-11-06 20:37] LABS: CHLAMYDIA DNA AMPLIFICATION NEGATIVE (NEGATIVE); GC DNA AMPLIFICATION NEGATIVE (NEGATIVE)
== END ==
LOC: M LAB REF 17:03
DX: Z30.430 Encounter for insertion of intrauterine contraceptive device (principal)

== ENCOUNTER → 2017-12-25 | Outpatient (REF) | payer OTHER ==
[2017-12-25 14:59] LABS: CHLAMYDIA DNA AMPLIFICATION NEGATIVE (NEGATIVE); GC DNA AMPLIFICATION NEGATIVE (NEGATIVE)
== END ==
LOC: M LAB REF 12:50
DX: Z12.4 Encounter for screening for malignant neoplasm of cervix (principal)
CPT/HCPCS: 87591

== ENCOUNTER → 2019-09-08 | Outpatient (REF) | payer OTHER ==
[~2019-09-08] MED LIST changes: -MONT10TA2; +MONT10TA4; -ORTH0.35 PO; +[UNRECOGNIZED DRUG - CODE] PO
[2019-09-08 15:07] LABS: CHLAMYDIA DNA AMPLIFICATION NEGATIVE (NEGATIVE); GC DNA AMPLIFICATION NEGATIVE (NEGATIVE)
== END ==
LOC: M SFHCWAGY 13:16
PROVIDERS: ATTEND Nurse Practitioner Women's Health
DX: Z11.3 Encounter for screening for infections with a predominantly sexual mode of transmission (principal)

== ENCOUNTER → 2020-08-12 | Outpatient (CLI) | payer SELFPAY ==
[~2020-08-12] MED LIST changes: -MONT10TA4; +MONT5TAB2
== END ==
LOC: M LABSMTC 10:01
PROVIDERS: ATTEND Pediatrics
DX: Z20.828 Contact with and (suspected) exposure to other viral communicable diseases (principal)

== ENCOUNTER → 2020-08-17 | Outpatient (CLI) | payer SELFPAY | LOC: M LABSMTC 12:41 | PROVIDERS: ATTEND Pediatrics | DX: Z20.822 Contact with and (suspected) exposure to COVID-19 (principal) ==

== ENCOUNTER → 2021-05-26 | Outpatient (REF) | payer OTHER ==
[~2021-05-26] MED LIST changes: +MONT10TA10; -MONT5TAB2
[2021-05-26 19:08] LABS: APPEARANCE, URINE CLOUDY (CLEAR); BACTERIA, URINE AUTO 3+ (NEGATIVE); BILIRUBIN, URINE AUTO NEGATIVE (NEGATIVE); BLOOD, URINE BLOOD NEGATIVE (NEGATIVE); COLOR, URINE YELLOW (YELLOW); GLUCOSE, URINE (UA) AUTO NEGATIVE (NEGATIVE); KETONE, URINE AUTO NEGATIVE (NEGATIVE); LEUKOCYTE ESTERASE, URINE AUTO NEGATIVE (NEGATIVE); MUCUS, URINE SMALL (NEGATIVE); NITRITE, URINE AUTO NEGATIVE (NEGATIVE); PROTEIN, URINE AUTO NEGATIVE (NEGATIVE); RBC, URINE AUTO 1 /HPF (0-3); SQUAMOUS EPITHELIAL CELL UR AU 4 /HPF (0-6); UROBILINOGEN, URINE AUTO 0.2 mg/dL (0.0-2.0); WBC, URINE AUTO 0 /HPF (0-3)
== END ==
LOC: M LAB REF 18:25
PROVIDERS: ATTEND Physician Assistant Medical
DX: R30.0 Dysuria (principal)

== ENCOUNTER → 2021-08-26 | Outpatient (CLI) | payer OTHER ==
[~2021-08-26] MED LIST changes: -MONT10TA10; +MONT10TA97
[2021-08-26 15:31] LABS: ALBUMIN 3.7 GM/DL (3.2-5.2); ALT/SGPT 30 U/L (12-78); BILIRUBIN,TOTAL 0.4 MG/DL (0.2-1.0); BLOOD UREA NITROGEN 10 MG/DL (7-18); CARBON DIOXIDE LEVEL 22 MEQ/L (21-32); CHLORIDE LEVEL 108 MEQ/L (98-107); CHOLESTEROL LEVEL 184 MG/DL (<200); CREATININE FOR GFR 0.76 MG/DL (0.55-1.30); GLOMERULAR FILTRATION RATE > 60.0 (>60); GLUCOSE, FASTING 98 MG/DL (70-100); HDL CHOLESTEROL 46 MG/DL (>40); LDL CHOLESTEROL 119 MG/DL (<100); NON-HDL-C 138 MG/DL; POTASSIUM SERUM 3.9 MEQ/L (3.5-5.1); SODIUM LEVEL 139 MEQ/L (136-145); TOTAL PROTEIN 7.6 GM/DL (6.4-8.2); TRIGLYCERIDES LEVEL 96 MG/DL (<150)
[2021-08-26 15:34] LABS: BASO % 0.5 % (0.0-1.0); EOS # 0.1 10^3/uL (0.0-0.5); EOS % 0.9 % (0.0-3.0); HEMATOCRIT 42.7 % (36.0-47.0); HEMOGLOBIN 13.9 g/dl (12.0-15.5); LYMPH # 2.4 10^3/uL (1.5-5.0); LYMPH % 27.8 % (24.0-44.0); MEAN CORPUSCULAR HEMOGLOBIN 29.9 pg (27.0-33.0); MEAN CORPUSCULAR HGB CONC 32.6 g/dl (32.0-36.5); MEAN CORPUSCULAR VOLUME 91.8 fl (80.0-96.0); MONO # 0.7 10^3/uL (0.0-0.8); MONO % 7.8 % (2.0-8.0); NEUTROPHILS # 5.4 10^3/uL (1.5-8.5); NEUTROPHILS % 62.7 % (36.0-66.0); PLATELET COUNT, AUTOMATED 331 10^3/uL (150-450); RED BLOOD COUNT 4.65 10^6/uL (4.00-5.40); WHITE BLOOD COUNT 8.6 10^3/uL (4.0-10.0)
== END ==
LOC: M PLALAB 12:21
PROVIDERS: ATTEND Family Medicine
DX: Z00.00 Encounter for general adult medical examination without abnormal findings (principal)

== ENCOUNTER → 2021-09-13 | Outpatient (REF) | payer OTHER ==
[2021-09-13 17:40] LABS: APPEARANCE, URINE HAZY (CLEAR); BACTERIA, URINE AUTO NEGATIVE (NEGATIVE); BILIRUBIN, URINE AUTO NEGATIVE (NEGATIVE); BLOOD, URINE BLOOD NEGATIVE (NEGATIVE); GLUCOSE, URINE (UA) AUTO NEGATIVE (NEGATIVE); KETONE, URINE AUTO NEGATIVE (NEGATIVE); LEUKOCYTE ESTERASE, URINE AUTO NEGATIVE (NEGATIVE); NITRITE, URINE AUTO NEGATIVE (NEGATIVE); PROTEIN, URINE AUTO NEGATIVE (NEGATIVE); RBC, URINE AUTO 0 /HPF (0-3); SPECIFIC GRAVITY URINE AUTO 1.003 (1.002-1.035); SQUAMOUS EPITHELIAL CELL UR AU 7 /HPF (0-6); UROBILINOGEN, URINE AUTO 0.2 mg/dL (0.0-2.0); WBC, URINE AUTO 2 /HPF (0-3)
[2021-09-13 17:45] LABS: COLOR, URINE YELLOW (YELLOW)
== END ==
LOC: M LAB REF 17:05
PROVIDERS: ATTEND Physician Assistant
DX: R30.0 Dysuria (principal)

== ENCOUNTER → 2022-02-12 | Outpatient (REF) | LOC: M LABSMTC 11:01 | PROVIDERS: ATTEND Family Medicine | DX: Z20.822 Contact with and (suspected) exposure to COVID-19 (principal) ==

== ENCOUNTER → 2022-03-30 | Outpatient (REF) | LOC: M LABSMTC 11:20 | PROVIDERS: ATTEND Family Medicine | DX: Z11.52 Encounter for screening for COVID-19 (principal) ==

== ENCOUNTER → 2022-09-12 | Outpatient (REF) | LOC: M EMP 12:24 | PROVIDERS: ATTEND Family Medicine | DX: Z11.52 Encounter for screening for COVID-19 (principal) ==

== ENCOUNTER → 2022-11-14 | Outpatient (CLI) | payer OTHER ==
[~2022-11-14] MED LIST changes: +MONT-5 PO; -SING10TA32 PO
[2022-11-14 13:17] LABS: CHOLESTEROL RISK RATIO 4.32 (<5); HDL CHOLESTEROL 44.4 MG/DL (>40); LDL CHOLESTEROL 120.6 MG/DL (<100); NON-HDL-C 147.6 MG/DL
[2022-11-14 13:19] LABS: FOLLICLE STIMULATING HORMONE 12.9 mIU/ML; LUTEINIZING HORMONE 19.6 mIU/ML; THYROID STIMULATING HORMONE 3.267 uIU/ML (0.55-4.78)
[2022-11-14 13:20] LABS: FREE T4 0.86 NG/DL (0.89-1.76)
[2022-11-14 13:22] LABS: HEMOGLOBIN A1c 4.9 % (4.0-6.0)
[2022-11-15 21:07] LABS: TESTOSTERONE FREE (DIRECT) 1.3 pg/mL (0.0-4.2)
== END ==
LOC: M PLALAB 09:43
PROVIDERS: ATTEND Nurse Practitioner Family
DX: N91.2 Amenorrhea, unspecified (principal)

== ENCOUNTER → 2022-11-28 | Outpatient (CLI) | payer OTHER | LOC: M RAD 11:38 | PROVIDERS: ATTEND Nurse Practitioner Family | DX: N92.6 Irregular menstruation, unspecified (principal) ==

== ENCOUNTER 2022-12-28 07:17 | Emergency (ER) | payer OTHER ==
[~2022-12-28] VITALS: Ht 160 cm; Wt 114.1 kg
[2022-12-28] MEDS ORDERED: FLUO40CA PO (07:29)
[2022-12-28] MEDS ORDERED: LARI1TAB5 (07:29)
[2022-12-28] MEDS ORDERED: IBUP200C25 PO (07:29)
[2022-12-28] MEDS ORDERED: MORPHINE 4 MG/ML 1ML VIAL IV ONE (07:45)
[2022-12-28] MEDS ORDERED: ONDANSETRON 4MG 2ML VIAL IV ONE (07:45)
[2022-12-28] MEDS ORDERED: NS 1,000 ML IV ONE (07:45)
[2022-12-28 08:18] LABS: BASO # 0.1 10^3/uL (0.0-0.2); BASO % 0.5 % (0.0-1.0); EOS # 0.1 10^3/uL (0.0-0.5); EOS % 0.8 % (0.0-3.0); HEMATOCRIT 39.8 % (36.0-47.0); HEMOGLOBIN 13.2 g/dl (12.0-15.5); LYMPH # 2.2 10^3/uL (1.5-5.0); LYMPH % 20.8 % (24.0-44.0); MEAN CORPUSCULAR HEMOGLOBIN 29.7 pg (27.0-33.0); MEAN CORPUSCULAR HGB CONC 33.2 g/dl (32.0-36.5); MEAN CORPUSCULAR VOLUME 89.6 fl (80.0-96.0); MONO # 0.6 10^3/uL (0.0-0.8); MONO % 5.8 % (2.0-8.0); NEUTROPHILS # 7.4 10^3/uL (1.5-8.5); NEUTROPHILS % 71.7 % (36.0-66.0); PLATELET COUNT, AUTOMATED 333 10^3/uL (150-450); RED BLOOD COUNT 4.44 10^6/uL (4.00-5.40); WHITE BLOOD COUNT 10.4 10^3/uL (4.0-10.0)
[2022-12-28 08:37] LABS: LIPASE 60 U/L (12-53)
[2022-12-28 08:40] LABS: ALKALINE PHOSPHATASE 70 U/L (46-116); ALT/SGPT 32 U/L (7.0-40); AST/SGOT 23 U/L (<34); BILIRUBIN,DIRECT < 0.1 MG/DL (<0.4); BILIRUBIN,TOTAL 0.2 MG/DL (0.3-1.2); BLOOD UREA NITROGEN 13 MG/DL (9-23); CALCIUM LEVEL 9.7 MG/DL (8.5-10.1); CARBON DIOXIDE LEVEL 24 MMOL/L (20-31); CHLORIDE LEVEL 106 MMOL/L (98-107); CREATININE FOR GFR 0.74 MG/DL (0.55-1.30); GLOMERULAR FILTRATION RATE > 60.0 (>60); GLUCOSE, FASTING 98 MG/DL (60-100); HCG, SERUM QUALITATIVE NEGATIVE (NEGATIVE); POTASSIUM SERUM 4.2 MMOL/L (3.5-5.1); SODIUM LEVEL 137 MMOL/L (136-145); TOTAL PROTEIN 7.4 G/DL (5.7-8.2)
[2022-12-28] MEDS ORDERED: ISOVUE-370 76% 100ML VIAL As Ordered ONE (10:06)
[2022-12-28 11:54] VITALS: BP 129/77
== END 2022-12-28 12:27 | disposition home or self-care (01) ==
LOC: M ED 07:17
DX: K80.66 Calculus of gallbladder and bile duct with acute and chronic cholecystitis without obstruction (principal); J45.909 Unspecified asthma, uncomplicated; Z88.2 Allergy status to sulfonamides; Z79.899 Other long term (current) drug therapy
CPT/HCPCS: 74177; 80048; 80076; 81001; 83690; 84703; 85025; 96374; 96375; 99284; J2405; Q9967

== ENCOUNTER 2023-01-26 07:26 | Emergency (ER) | payer OTHER ==
[~2023-01-26] VITALS: Ht 160 cm; Wt 112.0 kg
[~2023-01-26 07:26] MED LIST changes: +FLUO40CA PO; +IBUP200C25 PO; +LARI1TAB5
[2023-01-26] MEDS ORDERED: KETOROLAC 30 MG/ML 1ML VIAL IV ONE (07:55)
[2023-01-26] MEDS ORDERED: ONDANSETRON 4MG 2ML VIAL IV ONE (07:55)
[2023-01-26] MEDS ORDERED: NS 1,000 ML IV ONE (07:55)
[2023-01-26 08:28] LABS: BASO % 0.3 % (0.0-1.0); EOS # 0.1 10^3/uL (0.0-0.5); EOS % 0.9 % (0.0-3.0); HEMATOCRIT 41.8 % (36.0-47.0); HEMOGLOBIN 13.5 g/dl (12.0-15.5); LYMPH # 2.3 10^3/uL (1.5-5.0); LYMPH % 18.4 % (24.0-44.0); MEAN CORPUSCULAR HEMOGLOBIN 29.5 pg (27.0-33.0); MEAN CORPUSCULAR HGB CONC 32.3 g/dl (32.0-36.5); MEAN CORPUSCULAR VOLUME 91.3 fl (80.0-96.0); MONO # 0.9 10^3/uL (0.0-0.8); MONO % 7.2 % (2.0-8.0); NEUTROPHILS # 9.3 10^3/uL (1.5-8.5); NEUTROPHILS % 72.9 % (36.0-66.0); PLATELET COUNT, AUTOMATED 307 10^3/uL (150-450); RED BLOOD COUNT 4.58 10^6/uL (4.00-5.40); WHITE BLOOD COUNT 12.8 10^3/uL (4.0-10.0)
[2023-01-26 08:47] LABS: LIPASE 48 U/L (12-53)
[2023-01-26 08:49] LABS: ALKALINE PHOSPHATASE 77 U/L (46-116); ALT/SGPT 25 U/L (7.0-40); AST/SGOT 13 U/L (<34); BILIRUBIN,DIRECT < 0.1 MG/DL (<0.4); BILIRUBIN,TOTAL 0.3 MG/DL (0.3-1.2); BLOOD UREA NITROGEN 12 MG/DL (9-23); CALCIUM LEVEL 9.7 MG/DL (8.5-10.1); CARBON DIOXIDE LEVEL 23 MMOL/L (20-31); CHLORIDE LEVEL 105 MMOL/L (98-107); CREATININE FOR GFR 0.76 MG/DL (0.55-1.30); GLOMERULAR FILTRATION RATE > 60.0 (>60); GLUCOSE, FASTING 88 MG/DL (60-100); POTASSIUM SERUM 4.1 MMOL/L (3.5-5.1); SODIUM LEVEL 137 MMOL/L (136-145); TOTAL PROTEIN 7.3 G/DL (5.7-8.2)
[2023-01-26 09:12] LABS: HCG, SERUM QUALITATIVE NEGATIVE (NEGATIVE)
[2023-01-26] MEDS ORDERED: metroNIDAZOLE (FLAGYL) 500MG TABLET PO ONE (10:00)
[2023-01-26] MEDS ORDERED: cefTRIAXone SOD 2 GM in D5W MINI-BAG PLUS 50 ML IV ONE (10:00)
[2023-01-26] MEDS ORDERED: ONDA4TAB6 PO (11:26)
[2023-01-26] MEDS ORDERED: AMOX875T2 PO (11:26)
[2023-01-26] MEDS ORDERED: HYDR-3713 PO (11:26)
[2023-01-26 11:33] VITALS: BP 121/60; TEMP 97.9; O2SAT 97
== END 2023-01-26 11:50 | disposition home or self-care (01) ==
LOC: M ED 07:26
DX: K80.00 Calculus of gallbladder with acute cholecystitis without obstruction (principal); J45.909 Unspecified asthma, uncomplicated; F41.9 Anxiety disorder, unspecified; Z88.2 Allergy status to sulfonamides; Z79.899 Other long term (current) drug therapy
CPT/HCPCS: 76705; 80048; 80076; 83690; 84703; 85025; 87880; 96365; 96375; 99284; J0696; J1885; J2405

== ENCOUNTER → 2023-03-10 | Outpatient (CLI) | payer OTHER ==
[~2023-03-10] MED LIST changes: +AMOX875T2 PO; +HYDR-3713 PO; +ONDA4TAB6 PO
[2023-03-10 16:03] LABS: ALBUMIN 3.9 G/DL (3.2-5.2); ALKALINE PHOSPHATASE 81 U/L (46-116); ALT/SGPT 33 U/L (7.0-40); AST/SGOT 19 U/L (<34); BILIRUBIN,TOTAL 0.4 MG/DL (0.3-1.2); BLOOD UREA NITROGEN 12 MG/DL (9-23); CALCIUM LEVEL 9.1 MG/DL (8.5-10.1); CARBON DIOXIDE LEVEL 26 MMOL/L (20-31); CHLORIDE LEVEL 103 MMOL/L (98-107); CREATININE FOR GFR 0.69 MG/DL (0.55-1.30); GLOMERULAR FILTRATION RATE > 60.0 (>60); GLUCOSE, FASTING 82 MG/DL (60-100); POTASSIUM SERUM 4.4 MMOL/L (3.5-5.1); SODIUM LEVEL 138 MMOL/L (136-145); TOTAL PROTEIN 7.2 G/DL (5.7-8.2)
[2023-03-10 16:21] LABS: BASO % 0.4 % (0.0-1.0); EOS # 0.1 10^3/uL (0.0-0.5); EOS % 1.1 % (0.0-3.0); HEMATOCRIT 45.4 % (36.0-47.0); HEMOGLOBIN 14.4 g/dl (12.0-15.5); LYMPH # 2.3 10^3/uL (1.5-5.0); LYMPH % 25.7 % (24.0-44.0); MEAN CORPUSCULAR HEMOGLOBIN 29.3 pg (27.0-33.0); MEAN CORPUSCULAR HGB CONC 31.7 g/dl (32.0-36.5); MEAN CORPUSCULAR VOLUME 92.5 fl (80.0-96.0); MONO # 0.7 10^3/uL (0.0-0.8); MONO % 7.7 % (2.0-8.0); NEUTROPHILS # 5.8 10^3/uL (1.5-8.5); NEUTROPHILS % 64.5 % (36.0-66.0); PLATELET COUNT, AUTOMATED 343 10^3/uL (150-450); RED BLOOD COUNT 4.91 10^6/uL (4.00-5.40)
== END ==
LOC: M PLALAB 13:10
PROVIDERS: ATTEND Registered Nurse
DX: Z01.818 Encounter for other preprocedural examination (principal); K80.80 Other cholelithiasis without obstruction

== ENCOUNTER 2023-03-13 07:17 | Day surgery (SDC) | payer OTHER ==
[~2023-03-13] VITALS: Ht 160 cm; Wt 112.9 kg
[2023-03-13] MEDS ORDERED: ROCURONIUM BROMIDE 50MG/5ML VIAL As Ordered ONE ×2 (08:05→09:48)
[2023-03-13] MEDS ORDERED: propofoL 200 MG/20 ML VIAL As Ordered ONE (08:05)
[2023-03-13] MEDS ORDERED: ONDANSETRON 4MG 2ML VIAL As Ordered ONE (08:05)
[2023-03-13] MEDS ORDERED: MIDAZOLAM INJ 2MG/2ML VIAL As Ordered ONE (08:05)
[2023-03-13] MEDS ORDERED: LIDOCAINE 2% 100MG/5ML SDV (FOR ANES.) As Ordered ONE (08:05)
[2023-03-13] MEDS ORDERED: fentaNYL 100 MCG/2 ML INJECTION As Ordered ONE ×2 (08:05→09:40)
[2023-03-13] MEDS ORDERED: SCOPOLAMINE 1MG TRANSDERMAL PATCH TOP ONE (08:35)
[2023-03-13] MEDS ORDERED: LR 1,000 ML IV SCH ×2 (08:35→10:30)
[2023-03-13] MEDS ORDERED: ALBUTEROL 6.7GM INHALER **FOR ANES. CART/OMNICELL ONLY As Ordered ONE (09:30)
[2023-03-13] MEDS ORDERED: dexmedeTOMIDine (4MCG/ML)200MCG/50ML BTL (PRECEDEX) As Ordered ONE (09:31)
[2023-03-13] MEDS ORDERED: ACETAMINOPHEN 1000MG 100ML IV BAG As Ordered ONE (09:38)
[2023-03-13] MEDS ORDERED: SUGAMMADEX SODIUM 500 MG/5 ML VIAL (BRIDION) As Ordered ONE (09:39)
[2023-03-13] MEDS ORDERED: KETOROLAC 60MG 2ML VIAL As Ordered ONE (09:39)
[2023-03-13] MEDS ORDERED: GLYCOPYRROLATE INJ 0.2 MG/ML 2 ML VIAL As Ordered ONE (09:42)
[2023-03-13] MEDS ORDERED: ePHEDrine SULFATE 25 MG/5 ML(5MG/ML) SYRINGE As Ordered ONE (09:52)
[2023-03-13] MEDS ORDERED: METOCLOPRAMIDE INJ 10MG/2ML VIAL As Ordered ONE (09:52)
[2023-03-13] MEDS ORDERED: ONDANSETRON 4MG 2ML VIAL IV PRN (10:30)
[2023-03-13] MEDS ORDERED: fentaNYL 100 MCG/2 ML INJECTION IV PRN (10:30)
[2023-03-13] MEDS: HYDROMORPHONE HCL 0.5 MG/ 0.5 ML SYRINGE IV PRN ×3 (10:49→11:06)
[2023-03-13] MEDS: oxyCODONE 5MG TAB PO PRN ×2 (10:58→11:30)
[2023-03-13] MEDS ORDERED: NORCO, ANEXSIA 5/325MG TABLET (HYDROcodone/ACETAMINOPHEN) PO PRN (11:20)
[2023-03-13 11:55] VITALS: BP 112/56; TEMP 98; O2SAT 98
== END 2023-03-13 12:25 | disposition home or self-care (01) ==
LOC: M SDC 07:17
PROVIDERS: ATTEND Surgery
DX: K80.10 Calculus of gallbladder with chronic cholecystitis without obstruction (principal); K21.9 Gastro-esophageal reflux disease without esophagitis; F41.9 Anxiety disorder, unspecified; F32.A Depression, unspecified; J45.909 Unspecified asthma, uncomplicated; Z88.2 Allergy status to sulfonamides; Z79.899 Other long term (current) drug therapy
CPT/HCPCS: 47562; 81025; 88304; J0131; J0665; J1100; J1170; J1885; J2250; J2405; J2765; J3010; S2900

== ENCOUNTER 2023-03-18 14:10 | Emergency (ER) | payer OTHER ==
[~2023-03-18] VITALS: Ht 157.5 cm; Wt 110.3 kg
[2023-03-18] MEDS ORDERED: KETOROLAC 30 MG/ML 1ML VIAL IV ONE (16:20)
[2023-03-18] MEDS ORDERED: NS 1,000 ML IV ONE (17:40)
[2023-03-18 18:09] LABS: BASO % 0.3 % (0.0-1.0); EOS # 0.1 10^3/uL (0.0-0.5); LYMPH # 2.3 10^3/uL (1.5-5.0); LYMPH % 23.1 % (24.0-44.0); MEAN CORPUSCULAR HEMOGLOBIN 29.4 pg (27.0-33.0); MEAN CORPUSCULAR HGB CONC 32.6 g/dl (32.0-36.5); MEAN CORPUSCULAR VOLUME 90.3 fl (80.0-96.0); MONO # 0.6 10^3/uL (0.0-0.8); MONO % 6.4 % (2.0-8.0); NEUTROPHILS # 6.7 10^3/uL (1.5-8.5); NEUTROPHILS % 68.8 % (36.0-66.0); PLATELET COUNT, AUTOMATED 330 10^3/uL (150-450); RED BLOOD COUNT 4.76 10^6/uL (4.00-5.40); WHITE BLOOD COUNT 9.7 10^3/uL (4.0-10.0)
[2023-03-18 18:37] LABS: LIPASE 35 U/L (12-53)
[2023-03-18 18:39] LABS: ALBUMIN 3.6 G/DL (3.2-5.2); ALKALINE PHOSPHATASE 85 U/L (46-116); ALT/SGPT 56 U/L (7.0-40); AST/SGOT 22 U/L (<34); BILIRUBIN,DIRECT 0.1 MG/DL (<0.4); BILIRUBIN,TOTAL 0.4 MG/DL (0.3-1.2); BLOOD UREA NITROGEN 7 MG/DL (9-23); CALCIUM LEVEL 9.2 MG/DL (8.5-10.1); CARBON DIOXIDE LEVEL 26 MMOL/L (20-31); CHLORIDE LEVEL 105 MMOL/L (98-107); CREATININE FOR GFR 0.66 MG/DL (0.55-1.30); GLOMERULAR FILTRATION RATE > 60.0 (>60); GLUCOSE, FASTING 81 MG/DL (60-100); POTASSIUM SERUM 4.1 MMOL/L (3.5-5.1); SODIUM LEVEL 141 MMOL/L (136-145); TOTAL PROTEIN 7.1 G/DL (5.7-8.2)
[2023-03-18] MEDS ORDERED: ISOVUE-370 76% 100ML VIAL As Ordered ONE (18:41)
[2023-03-18 18:47] LABS: HCG, SERUM QUALITATIVE NEGATIVE (NEGATIVE)
[2023-03-18] MEDS ORDERED: HYDR-3713 PO (19:31)
[2023-03-18 19:57] VITALS: BP 106/78; TEMP 98.3; O2SAT 99
== END 2023-03-18 19:59 | disposition home or self-care (01) ==
LOC: M ED 14:10
DX: G89.18 Other acute postprocedural pain (principal); J45.909 Unspecified asthma, uncomplicated; F41.9 Anxiety disorder, unspecified; F32.A Depression, unspecified; Z88.2 Allergy status to sulfonamides; Z79.899 Other long term (current) drug therapy
CPT/HCPCS: 74177; 80048; 80076; 81001; 83690; 84703; 85025; 96374; 99284; J1885; Q9967

== ENCOUNTER → 2023-07-01 | Outpatient (CLI) | payer OTHER ==
[2023-07-01 13:38] LABS: ALBUMIN 3.8 G/DL (3.2-5.2); ALKALINE PHOSPHATASE 83 U/L (46-116); ALT/SGPT 41 U/L (7.0-40); AST/SGOT 26 U/L (<34); BILIRUBIN,TOTAL 0.4 MG/DL (0.3-1.2); BLOOD UREA NITROGEN 11 MG/DL (9-23); CALCIUM LEVEL 9.3 MG/DL (8.5-10.1); CARBON DIOXIDE LEVEL 25 MMOL/L (20-31); CHLORIDE LEVEL 105 MMOL/L (98-107); CREATININE FOR GFR 0.69 MG/DL (0.55-1.30); GLOMERULAR FILTRATION RATE > 60.0 (>60); GLUCOSE, FASTING 93 MG/DL (60-100); POTASSIUM SERUM 4.2 MMOL/L (3.5-5.1); SODIUM LEVEL 138 MMOL/L (136-145); TOTAL PROTEIN 7.4 G/DL (5.7-8.2)
[2023-07-01 13:39] LABS: FREE T4 0.92 NG/DL (0.89-1.76); THYROID STIMULATING HORMONE 2.732 uIU/ML (0.55-4.78)
[2023-07-01 13:40] LABS: PROLACTIN 13.11 NG/ML
[2023-07-01 13:47] LABS: HEMOGLOBIN A1c 4.7 % (4.0-6.0)
[2023-07-04 05:07] LABS: 17 HYDROXY PROGESTERONE 208 ng/dL (.); TESTOSTERONE FREE (DIRECT) 1.9 pg/mL (0.0-4.2)
== END ==
LOC: M PLALAB 10:52
PROVIDERS: ATTEND Nurse Practitioner Family
DX: N92.6 Irregular menstruation, unspecified (principal)

== ENCOUNTER → 2023-07-05 | Outpatient (REF) | payer OTHER | LOC: M LAB REF 19:21 | PROVIDERS: ATTEND Physician Assistant | DX: J06.9 Acute upper respiratory infection, unspecified (principal) ==

== ENCOUNTER → 2023-07-07 | Outpatient (CLI) | payer OTHER | LOC: M WHC 08:00 | PROVIDERS: ATTEND Nurse Practitioner Family | DX: N92.6 Irregular menstruation, unspecified (principal) ==

== ENCOUNTER → 2023-07-15 | Outpatient (REF) | LOC: M EMP 09:35 | PROVIDERS: ATTEND Family Medicine | DX: Z11.52 Encounter for screening for COVID-19 (principal) ==

== ENCOUNTER → 2023-08-24 | Outpatient (REF) | payer OTHER | LOC: M SFHCWAGY 12:22 | PROVIDERS: ATTEND Nurse Practitioner Family | DX: Z12.4 Encounter for screening for malignant neoplasm of cervix (principal); R87.615 Unsatisfactory cytologic smear of cervix; R87.618 Other abnormal cytological findings on specimens from cervix uteri ==

== ENCOUNTER → 2023-11-12 | Outpatient (CLI) | payer BC | LOC: M PLALAB 10:35 | PROVIDERS: ATTEND Obstetrics & Gynecology | DX: Z32.00 Encounter for pregnancy test, result unknown (principal) ==

== ENCOUNTER → 2023-12-14 | Outpatient (CLI) | payer BC | LOC: M PLALAB 10:12 | PROVIDERS: ATTEND Obstetrics & Gynecology | DX: Z32.00 Encounter for pregnancy test, result unknown (principal) ==

== ENCOUNTER → 2024-01-13 | Outpatient (CLI) | payer BC ==
[~2024-01-13] MED LIST changes: +ONDA-282 PO; -ONDA4TAB6 PO
== END ==
LOC: M PLALAB 07:39
PROVIDERS: ATTEND Obstetrics & Gynecology
DX: Z32.00 Encounter for pregnancy test, result unknown (principal)

== ENCOUNTER → 2024-01-13 | Outpatient (REF) | payer BC | LOC: M SFHCWAGY 15:07 | PROVIDERS: ATTEND Nurse Practitioner Family | DX: Z12.4 Encounter for screening for malignant neoplasm of cervix (principal); R87.615 Unsatisfactory cytologic smear of cervix ==

== ENCOUNTER → 2024-02-12 | Outpatient (CLI) | payer BC | LOC: M PLALAB 11:30 | PROVIDERS: ATTEND Obstetrics & Gynecology | DX: Z32.00 Encounter for pregnancy test, result unknown (principal) ==

== ENCOUNTER → 2024-03-11 | Outpatient (CLI) | payer BC | LOC: M PLALAB 12:13 | PROVIDERS: ATTEND Obstetrics & Gynecology | DX: Z32.00 Encounter for pregnancy test, result unknown (principal) ==

== ENCOUNTER → 2024-04-12 | Outpatient (CLI) | payer BC | LOC: M LAB 06:28 | PROVIDERS: ATTEND Obstetrics & Gynecology | DX: Z32.00 Encounter for pregnancy test, result unknown (principal) ==

== ENCOUNTER → 2024-04-14 | Outpatient (CLI) | payer BC ==
[2024-04-14 08:42] LABS: HCG, SERUM QUANTITATIVE 85.5 MIU/ML (<4.2)
[2024-04-14 08:47] LABS: PROGESTERONE 16.2 NG/ML
== END ==
LOC: M LAB 07:40
PROVIDERS: ATTEND Obstetrics & Gynecology
DX: O09.01 Supervision of pregnancy with history of infertility, first trimester (principal); Z3A.00 Weeks of gestation of pregnancy not specified; Z31.41 Encounter for fertility testing

== ENCOUNTER → 2024-04-18 | Outpatient (CLI) | payer BC ==
[2024-04-18 07:23] LABS: HCG, SERUM QUANTITATIVE 23.6 MIU/ML (<4.2)
[2024-04-18 07:27] LABS: PROGESTERONE 1.53 NG/ML
== END ==
LOC: M LAB 06:22
PROVIDERS: ATTEND Obstetrics & Gynecology
DX: O09.01 Supervision of pregnancy with history of infertility, first trimester (principal); Z3A.00 Weeks of gestation of pregnancy not specified

== ENCOUNTER → 2024-04-25 | Outpatient (CLI) | payer BC | LOC: M LAB 10:20 | PROVIDERS: ATTEND Obstetrics & Gynecology | DX: O09.01 Supervision of pregnancy with history of infertility, first trimester (principal); Z3A.00 Weeks of gestation of pregnancy not specified ==

== ENCOUNTER 2024-05-02 16:54 | Emergency (ER) | payer OTHER, BC ==
[~2024-05-02] VITALS: Ht 160 cm; Wt 113.0 kg
[2024-05-02 18:56] VITALS: BP 139/84; TEMP 97.8; O2SAT 97
== END 2024-05-02 18:57 | disposition home or self-care (01) ==
LOC: M ED 16:54
DX: S63.8X1A Sprain of other part of right wrist and hand, initial encounter (principal); Y92.9 Unspecified place or not applicable; Y93.9 Activity, unspecified; Y99.0 Civilian activity done for income or pay; K21.9 Gastro-esophageal reflux disease without esophagitis; Z88.2 Allergy status to sulfonamides; Z79.1 Long term (current) use of non-steroidal anti-inflammatories (NSAID); Z79.810 Long term (current) use of selective estrogen receptor modulators (SERMs)

== ENCOUNTER → 2024-06-16 | Outpatient (REF) | payer BC | LOC: M LAB REF 21:04 | PROVIDERS: ATTEND Physician Assistant | DX: B34.9 Viral infection, unspecified (principal) ==

== ENCOUNTER → 2024-06-22 | Outpatient (CLI) | payer BC ==
[2024-06-22 07:41] LABS: LUTEINIZING HORMONE 84.3 mIU/ML; PROGESTERONE 5.43 NG/ML
== END ==
LOC: M LAB 06:24
PROVIDERS: ATTEND Obstetrics & Gynecology
DX: N46.11 Organic oligospermia (principal); E28.2 Polycystic ovarian syndrome

== ENCOUNTER → 2024-07-14 | Outpatient (REF) | payer BC, OTHER ==
[~2024-07-14] MED LIST changes: -ADV250INH; -ADV250INH INH; +ADVA1AER9; +ADVA1AER9 INH
== END ==
LOC: M LAB REF 20:48
PROVIDERS: ATTEND Physician Assistant Medical
DX: R05.9 Cough, unspecified (principal)

== ENCOUNTER → 2024-09-05 | Outpatient (CLI) | payer BC ==
[2024-09-05 14:01] LABS: BASO % 0.4 % (0.0-1.0); EOS # 0.1 10^3/uL (0.0-0.5); EOS % 0.8 % (0.0-3.0); HEMATOCRIT 44.9 % (36.0-47.0); HEMOGLOBIN 14.2 g/dl (12.0-15.5); LYMPH # 1.9 10^3/uL (1.5-5.0); LYMPH % 26.7 % (24.0-44.0); MEAN CORPUSCULAR HGB CONC 31.6 g/dl (32.0-36.5); MEAN CORPUSCULAR VOLUME 91.6 fl (80.0-96.0); MONO # 0.5 10^3/uL (0.0-0.8); MONO % 6.8 % (2.0-8.0); NEUTROPHILS # 4.6 10^3/uL (1.5-8.5); PLATELET COUNT, AUTOMATED 344 10^3/uL (150-450); WHITE BLOOD COUNT 7.1 10^3/uL (4.0-10.0)
[2024-09-05 14:25] LABS: ALBUMIN 3.8 G/DL (3.2-5.2); ALKALINE PHOSPHATASE 69 U/L (35-104); ALT/SGPT 36 U/L (7.0-40); AST/SGOT 18 U/L (<34); BILIRUBIN,TOTAL 0.3 MG/DL (0.3-1.2); BLOOD UREA NITROGEN 14 MG/DL (9-23); CALCIUM LEVEL 9.4 MG/DL (8.5-10.1); CARBON DIOXIDE LEVEL 24 MMOL/L (20-31); CHLORIDE LEVEL 104 MMOL/L (98-107); CHOLESTEROL LEVEL 212 MG/DL (<200); CHOLESTEROL RISK RATIO 3.71 (<5); CREATININE FOR GFR 0.75 MG/DL (0.55-1.30); GLOMERULAR FILTRATION RATE > 60.0 (>60); GLUCOSE, FASTING 87 MG/DL (60-100); HDL CHOLESTEROL 57.1 MG/DL (>40); LDL CHOLESTEROL 126.5 MG/DL (<100); NON-HDL-C 154.9 MG/DL; POTASSIUM SERUM 4.4 MMOL/L (3.5-5.1); SODIUM LEVEL 140 MMOL/L (136-145); TOTAL PROTEIN 7.8 G/DL (5.7-8.2); TRIGLYCERIDES LEVEL 142 MG/DL (<150)
[2024-09-05 14:28] LABS: FREE T4 1.14 NG/DL (0.89-1.76); THYROID STIMULATING HORMONE 2.004 uIU/ML (0.55-4.78)
[2024-09-05 15:59] LABS: HEMOGLOBIN A1c 4.8 % (4.0-6.0)
[2024-09-06 13:17] LABS: INSULIN TOTAL2 13.8 uIU/mL (<=18.4)
== END ==
LOC: M PLALAB 11:17
PROVIDERS: ATTEND Registered Nurse
DX: E66.9 Obesity, unspecified (principal)

== ENCOUNTER → 2024-10-21 | Outpatient (REF) | payer BC ==
[2024-10-21 16:34] LABS: APPEARANCE, URINE CLOUDY (CLEAR); BACTERIA, URINE AUTO NEGATIVE (NEGATIVE); BILIRUBIN, URINE AUTO NEGATIVE (NEGATIVE); BLOOD, URINE BLOOD 3+ (NEGATIVE); COLOR, URINE AMBER (YELLOW); GLUCOSE, URINE (UA) AUTO NEGATIVE (NEGATIVE); KETONE, URINE AUTO NEGATIVE (NEGATIVE); LEUKOCYTE ESTERASE, URINE AUTO 1+ (NEGATIVE); MUCUS, URINE SMALL (NEGATIVE); NITRITE, URINE AUTO NEGATIVE (NEGATIVE); PROTEIN, URINE AUTO 1+ mg/dL (NEGATIVE); RBC, URINE AUTO 2 /HPF (0-3); SQUAMOUS EPITHELIAL CELL UR AU 73 /HPF (0-6); UROBILINOGEN, URINE AUTO 0.2 mg/dL (0.0-2.0); WBC, URINE AUTO 17 /HPF (0-3)
== END ==
LOC: M LAB REF 15:10
PROVIDERS: ATTEND Physician Assistant
DX: N39.0 Urinary tract infection, site not specified (principal)

== ENCOUNTER → 2024-12-09 | Outpatient (CLI) | payer BC | LOC: M LAB 08:50 | PROVIDERS: ATTEND Obstetrics & Gynecology Reproductive Endocrinology | DX: Z32.00 Encounter for pregnancy test, result unknown (principal) ==

== ENCOUNTER → 2025-02-13 | Outpatient (CLI) | payer BC | LOC: M LAB 07:40 | PROVIDERS: ATTEND Obstetrics & Gynecology Reproductive Endocrinology | DX: Z32.00 Encounter for pregnancy test, result unknown (principal); E28.2 Polycystic ovarian syndrome ==

== ENCOUNTER → 2025-02-15 | Outpatient (CLI) | payer BC ==
[2025-02-15 09:39] LABS: PROGESTERONE 13.91 NG/ML
[2025-02-15 10:03] LABS: HCG, SERUM QUANTITATIVE 1369.9 MIU/ML (<4.2)
== END ==
LOC: M LAB 08:27
PROVIDERS: ATTEND Obstetrics & Gynecology Reproductive Endocrinology
DX: N46.11 Organic oligospermia (principal); E28.2 Polycystic ovarian syndrome

== ENCOUNTER 2025-02-19 19:41 | Emergency (ER) | payer BC ==
[~2025-02-19] VITALS: Ht 160 cm; Wt 110.3 kg
[2025-02-19 21:03] LABS: BASO # 0.1 10^3/uL (0.0-0.2); BASO % 0.4 % (0.0-1.0); EOS # 0.4 10^3/uL (0.0-0.5); EOS % 3.1 % (0.0-3.0); LYMPH # 2.6 10^3/uL (1.5-5.0); LYMPH % 22.0 % (24.0-44.0); MONO # 0.8 10^3/uL (0.0-0.8); MONO % 7.0 % (2.0-8.0); NEUTROPHILS # 8.0 10^3/uL (1.5-8.5); NEUTROPHILS % 67.0 % (36.0-66.0); PLATELET COUNT, AUTOMATED 373 10^3/uL (150-450)
[2025-02-19 21:22] LABS: CALCIUM LEVEL 8.8 MG/DL (8.5-10.1); CARBON DIOXIDE LEVEL 20 MMOL/L (20-31); CHLORIDE LEVEL 107 MMOL/L (98-107); CREATININE FOR GFR 0.66 MG/DL (0.55-1.30); GLOMERULAR FILTRATION RATE > 90.0 (>60); POTASSIUM SERUM 3.7 MMOL/L (3.5-5.1); SODIUM LEVEL 140 MMOL/L (136-145)
[2025-02-19 21:43] LABS: HCG, SERUM QUANTITATIVE 7634.6 MIU/ML (<4.2)
[2025-02-19] MEDS: NS (Normal Saline) 0.9% 1,000 ML IV ONE (21:56)
[2025-02-19 22:13] LABS: KETONE, URINE AUTO RFX NEGATIVE (NEGATIVE); LEUKOCYTE ESTERASE UR AUTO RFX NEGATIVE (NEGATIVE); MUCUS, URINE RFX SMALL (NEGATIVE); NITRITE, URINE AUTO RFX NEGATIVE (NEGATIVE); RBC, URINE AUTO RFX TNTC /HPF (0-3); SQUAM EPITHELIAL CELL UR AURFX 25 /HPF (0-6); WBC, URINE AUTO RFX 1 /HPF (0-3)
[2025-02-19 22:42] VITALS: TEMP 99
[2025-02-19 22:43] VITALS: BP 131/68; O2SAT 98
== END 2025-02-19 22:46 | disposition home or self-care (01) ==
LOC: M ED 19:41
DX: O20.8 Other hemorrhage in early pregnancy (principal); Z3A.01 Less than 8 weeks gestation of pregnancy; O99.511 Diseases of the respiratory system complicating pregnancy, first trimester; J45.909 Unspecified asthma, uncomplicated; Z88.2 Allergy status to sulfonamides; Z79.1 Long term (current) use of non-steroidal anti-inflammatories (NSAID); Z79.899 Other long term (current) drug therapy; Z79.810 Long term (current) use of selective estrogen receptor modulators (SERMs)

== ENCOUNTER → 2025-02-22 | Outpatient (CLI) | payer BC | LOC: M LAB 13:03 | PROVIDERS: ATTEND Obstetrics & Gynecology Reproductive Endocrinology | DX: Z31.41 Encounter for fertility testing (principal) ==

== ENCOUNTER → 2025-04-05 | Outpatient (REF) | payer BC | LOC: M PLALAB 08:42 | PROVIDERS: ATTEND Nurse Practitioner Family | DX: Z53.9 Procedure and treatment not carried out, unspecified reason (principal) ==

== ENCOUNTER → 2025-04-05 | Outpatient (CLI) | payer BC ==
[2025-04-05 13:27] LABS: PLATELET COUNT, AUTOMATED 362 10^3/uL (150-450)
[2025-04-05 13:31] LABS: LDH LACTATE DEHYDROGENASE 154 U/L (120-246)
[2025-04-05 13:32] LABS: ALT/SGPT 28 U/L (7.0-40); AST/SGOT 21 U/L (<34); CREATININE FOR GFR 0.52 MG/DL (0.55-1.30); GLOMERULAR FILTRATION RATE > 90.0 (>60)
[2025-04-05 14:15] LABS: Trichomonas vaginalis (AMP) NOT DETECTED (NEGATIVE)
[2025-04-05 14:39] LABS: GC DNA AMPLIFICATION NEGATIVE (NEGATIVE)
[2025-04-05 15:11] LABS: TOTAL PROTEIN,RANDOM URINE 16.3 MG/DL (0.0-14.0)
[2025-04-05 15:41] LABS: HIV 1&2 SCREEN NEGATIVE (NEGATIVE)
[2025-04-05 15:47] LABS: HEPATITIS C VIRUS ABY INDEX < 0.02 INDEX (<0.8)
== END ==
LOC: M PLALAB 10:09
PROVIDERS: ATTEND Nurse Practitioner Family
DX: Z34.80 Encounter for supervision of other normal pregnancy, unspecified trimester (principal)

== ENCOUNTER → 2025-04-21 | Outpatient (REF) | payer BC ==
[2025-04-21 17:43] LABS: APPEARANCE, URINE CLOUDY (CLEAR); BACTERIA, URINE AUTO NEGATIVE (NEGATIVE); BILIRUBIN, URINE AUTO NEGATIVE (NEGATIVE); BLOOD, URINE BLOOD NEGATIVE (NEGATIVE); GLUCOSE, URINE (UA) AUTO 1+ mg/dL (NEGATIVE); KETONE, URINE AUTO NEGATIVE (NEGATIVE); LEUKOCYTE ESTERASE, URINE AUTO TRACE (NEGATIVE); MUCUS, URINE SMALL (NEGATIVE); NITRITE, URINE AUTO NEGATIVE (NEGATIVE); PROTEIN, URINE AUTO NEGATIVE (NEGATIVE); RBC, URINE AUTO 0 /HPF (0-3); SPECIFIC GRAVITY URINE AUTO 1.015 (1.002-1.035); SQUAMOUS EPITHELIAL CELL UR AU 69 /HPF (0-6); UROBILINOGEN, URINE AUTO 0.2 mg/dL (0.0-2.0); WBC, URINE AUTO 2 /HPF (0-3)
== END ==
LOC: M LAB REF 16:54
PROVIDERS: ATTEND Physician Assistant
DX: N39.0 Urinary tract infection, site not specified (principal)

== ENCOUNTER → 2025-05-03 | Outpatient (REF) | payer BC | LOC: M PLALAB 10:22 | PROVIDERS: ATTEND Nurse Practitioner Family | DX: Z34.80 Encounter for supervision of other normal pregnancy, unspecified trimester (principal) ==

== ENCOUNTER → 2025-06-01 | Outpatient (CLI) | payer BC | LOC: M WHC 10:47 | PROVIDERS: ATTEND Nurse Practitioner Family | DX: O09.812 Supervision of pregnancy resulting from assisted reproductive technology, second trimester (principal); O34.12 Maternal care for benign tumor of corpus uteri, second trimester; Z3A.20 20 weeks gestation of pregnancy ==

== ENCOUNTER → 2025-06-14 | Outpatient (REF) | payer BC | LOC: M LAB REF 12:15 | PROVIDERS: ATTEND Physician Assistant | DX: B34.9 Viral infection, unspecified (principal); J02.9 Acute pharyngitis, unspecified ==

== ENCOUNTER → 2025-06-27 | Outpatient (CLI) | payer BC | LOC: M WHC 15:07 | PROVIDERS: ATTEND Nurse Practitioner Family | DX: Z34.82 Encounter for supervision of other normal pregnancy, second trimester (principal); Z3A.23 23 weeks gestation of pregnancy ==

== ENCOUNTER → 2025-07-24 | Outpatient (CLI) | payer BC ==
[2025-07-24 13:59] LABS: PLATELET COUNT, AUTOMATED 342 10^3/uL (150-450)
[2025-07-24 14:21] LABS: GLUCOSE CHALLENGE TEST 1 HOUR 130 MG/DL (LESS THAN 140)
[2025-07-24 14:56] LABS: HIV 1&2 SCREEN NEGATIVE (NEGATIVE)
[2025-07-24 15:04] LABS: HEPATITIS C VIRUS ABY INDEX 0.04 INDEX (<0.8)
[2025-07-24 15:15] LABS: Trichomonas vaginalis (AMP) NOT DETECTED (NEGATIVE)
[2025-07-24 15:38] LABS: GC DNA AMPLIFICATION NEGATIVE (NEGATIVE)
== END ==
LOC: M PLALAB 10:31
PROVIDERS: ATTEND Obstetrics & Gynecology
DX: Z34.92 Encounter for supervision of normal pregnancy, unspecified, second trimester (principal)